=== PATIENT | male | born 1960 | race Caucasian/White ===

== ENCOUNTER 2017-10-20 21:19 | Emergency (ER) | payer MEDICAID ==
[~2017-10-20] VITALS: Ht 167.6 cm; Wt 80.7 kg
[2017-10-20 21:30] VITALS: BP_SYST 128
[2017-10-20 23:55] VITALS: BP_SYST 128
== END 2017-10-20 23:55 | disposition home or self-care (01) ==
LOC: SED 21:19
DX: S92.351A Displaced fracture of fifth metatarsal bone, right foot, initial encounter for closed fracture (principal); W19.XXXA Unspecified fall, initial encounter; Y93.89 Activity, other specified; Y92.89 Other specified places as the place of occurrence of the external cause; Y99.8 Other external cause status
CPT/HCPCS: 99284

== ENCOUNTER 2017-11-01 09:15 | Inpatient (IN) | payer MEDICAID ==
[~2017-11-01] VITALS: Ht 167.6 cm; Wt 76.9 kg
[2017-11-01 09:15] VITALS: BP_SYST 162
[2017-11-01] MEDS ORDERED: KETOROLAC TROMETHAMINE 60 MG/2 ML VIAL IM ONE (09:45)
[2017-11-01] MEDS ORDERED: MAG HYDROX/AL HYDROX/SIMETH 30 ML, BELLADONNA ALKALOIDS/PHENOBARB 10 ML, LIDOCAINE VISC... PO ONE ×3 (09:45)
[2017-11-01 09:53] LABS: BASOPHILS % (AUTO) 0.7 % (0.0-2.0); EOSINOPHILS # (AUTO) 0.2 K/uL (0.0-0.4); EOSINOPHILS % (AUTO) 2.6 % (0.0-4.0); HEMATOCRIT 44.2 % (36-54); HEMOGLOBIN 14.7 g/dL (14.0-18.0); LYMPHOCYTES # (AUTO) 1.3 K/uL (1.0-5.5); LYMPHOCYTES % (AUTO) 18.9 % (20.5-51.5); MEAN CORPUSCULAR HEMOGLOBIN 29 pg (27-31); MEAN CORPUSCULAR HGB CONC 33 % (32-36); MEAN CORPUSCULAR VOLUME 87 fL (79.0-98.0); MONOCYTES # (AUTO) 0.4 K/uL (0.0-1.0); MONOCYTES % (AUTO) 6.3 % (1.7-9.3); NEUTROPHILS # (AUTO) 4.9 K/uL (1.8-7.7); NEUTROPHILS % (AUTO) 71.5 % (40.0-70.0); PLATELET COUNT (AUTO) 262 K/uL (130-430); RED BLOOD CELL COUNT(AUTO) 5.08 MIL/uL (4.2-6.2); RED CELL DISTRIBUTION WIDTH 12.9 % (9.0-15.0); WHITE BLOOD COUNT (AUTO) 6.8 K/uL (4.8-10.8)
[2017-11-01 10:00] LABS: ANION GAP 9 (5-15); CALCIUM 8.4 mg/dL (8.4-11.0); CHLORIDE 100 mmol/L (98-107); CREATININE 1.08 mg/dL (0.55-1.30); GLUCOSE 228 mg/dL (70-99); POTASSIUM 3.8 mmol/L (3.5-5.1); SODIUM SERUM 134 mmol/L (136-145); UREA NITROGEN, BLOOD 14 mg/dL (8-21)
[2017-11-01] MEDS ORDERED: KETOROLAC TROMETHAMINE 15 MG VIAL IVP ONE (10:00)
[2017-11-01 10:01] LABS: GFR AFRICAN AMERICAN 90 mL/min (>90)
[2017-11-01 10:04] LABS: ALANINE AMINOTRANSFERASE 28 U/L (12-78); ALBUMIN 3.7 g/dL (3.4-4.8); ASPARTATE AMINOTRANSFERASE < 5 U/L (10-37); TOTAL BILIRUBIN 0.2 mg/dL (0.0-1.0)
[2017-11-01] MEDS ORDERED: ASPIRIN 81 MG TAB.CHEW PO ONE ×2 (10:45→14:45)
[2017-11-01] MEDS ORDERED: IBUP-1611 PO (11:05)
[2017-11-01] MEDS ORDERED: TYC3 PO (11:05)
[2017-11-01 12:09] VITALS: BP_SYST 161
[2017-11-01 12:46] VITALS: BP_SYST 161
[2017-11-01] MEDS ORDERED: *HEPARIN PER PHARMACY XX ONE (13:45)
[2017-11-01] MEDS: METOPROLOL TARTRATE 25 MG TABLET PO SCH ×2 (13:45→21:51)
[2017-11-01] MEDS: LISINOPRIL 5 MG TABLET PO SCH (13:45)
[2017-11-01 14:24] LABS: CHOLESTEROL 255 mg/dL (<200); HDL CHOLESTEROL 28 mg/dL (>45); LDL CHOLESTEROL 100 mg/dL (<100); TRIGLYCERIDES 631 mg/dL (30-150)
[2017-11-01] MEDS ORDERED: METOPROLOL TARTRATE 25 MG TABLET PO ONE (14:45)
[2017-11-01] MEDS ORDERED: LISINOPRIL 5 MG TABLET PO ONE (14:45)
[2017-11-01] MEDS ORDERED: ENOXAPARIN SODIUM 80 MG/0.8 ML SYRINGE SUBCUT ONE ×2 (15:00→16:15)
[2017-11-01] MEDS: ASPIRIN 81 MG TAB.CHEW PO SCH (15:11)
[2017-11-01 16:12] VITALS: BP_SYST 124
[2017-11-01 20:00] VITALS: BP_SYST 111
[2017-11-02] VITALS: BP_SYST 101
[2017-11-02 06:41] LABS: BASOPHILS # (AUTO) 0.1 K/uL (0.0-0.2); BASOPHILS % (AUTO) 1.1 % (0.0-2.0); EOSINOPHILS # (AUTO) 0.3 K/uL (0.0-0.4); EOSINOPHILS % (AUTO) 4.2 % (0.0-4.0); HEMATOCRIT 43.4 % (36-54); HEMOGLOBIN 14.5 g/dL (14.0-18.0); LYMPHOCYTES # (AUTO) 2.1 K/uL (1.0-5.5); LYMPHOCYTES % (AUTO) 31.5 % (20.5-51.5); MEAN CORPUSCULAR HEMOGLOBIN 30 pg (27-31); MEAN CORPUSCULAR HGB CONC 34 % (32-36); MEAN CORPUSCULAR VOLUME 88 fL (79.0-98.0); MONOCYTES # (AUTO) 0.3 K/uL (0.0-1.0); MONOCYTES % (AUTO) 4.9 % (1.7-9.3); NEUTROPHILS # (AUTO) 3.8 K/uL (1.8-7.7); NEUTROPHILS % (AUTO) 58.3 % (40.0-70.0); PLATELET COUNT (AUTO) 242 K/uL (130-430); RED BLOOD CELL COUNT(AUTO) 4.92 MIL/uL (4.2-6.2); RED CELL DISTRIBUTION WIDTH 13.3 % (9.0-15.0); WHITE BLOOD COUNT (AUTO) 6.6 K/uL (4.8-10.8)
[2017-11-02 07:15] LABS: CALCIUM 7.9 mg/dL (8.4-11.0); CREATININE 1.03 mg/dL (0.55-1.30); POTASSIUM 4.1 mmol/L (3.5-5.1)
[2017-11-02 07:34] LABS: ALBUMIN 2.5 g/dL (3.4-4.8); THYROID STIMULATING HORMONE 1.09 uIu/mL (0.36-3.74); TOTAL BILIRUBIN 0.4 mg/dL (0.0-1.0)
[2017-11-02 08:00] VITALS: BP_SYST 124
[2017-11-02] MEDS: ASPIRIN 81 MG TAB.CHEW PO SCH (08:56)
[2017-11-02] MEDS: METOPROLOL TARTRATE 25 MG TABLET PO SCH (08:57)
[2017-11-02] MEDS: LISINOPRIL 5 MG TABLET PO SCH (08:58)
[2017-11-02] MEDS ORDERED: ENOXAPARIN SODIUM 80 MG/0.8 ML SYRINGE SUBCUT SCH (09:00)
[2017-11-02] MEDS ORDERED: ATORVASTATIN 20 MG TABLET PO SCH (09:00)
[2017-11-02 10:46] VITALS: BP_SYST 124
[2017-11-02 11:23] VITALS: BP_SYST 94
[2017-11-02 15:42] VITALS: BP_SYST 107
== END 2017-11-02 15:30 | disposition short-term general hospital (02) | DRG 190 ==
LOC: SED 09:15 → STU 11:50
PROVIDERS: ADMIT Internal Medicine Hospice and Palliative Medicine; ATTEND Internal Medicine Hospice and Palliative Medicine
DX: I21.4 Non-ST elevation (NSTEMI) myocardial infarction (principal); E11.65 Type 2 diabetes mellitus with hyperglycemia; E78.5 Hyperlipidemia, unspecified; E78.1 Pure hyperglyceridemia; I10 Essential (primary) hypertension; F17.210 Nicotine dependence, cigarettes, uncomplicated; Z79.899 Other long term (current) drug therapy; Z90.49 Acquired absence of other specified parts of digestive tract
CPT/HCPCS: 36415; 71045; 80053; 80061; 82550-TC; 83036; 83880; 84443-TC; 84484; 85025; 93005; 93306; 96374; 99285; J1650; J1885; J2001

== ENCOUNTER 2020-03-14 07:30 | Inpatient (IN) | payer MEDICAID, SELFPAY ==
[~2020-03-14] VITALS: Ht 167.6 cm; Wt 67.8 kg
[~2020-03-14 07:30] MED LIST: IBUP-2604 PO; TYC3 PO
[2020-03-14 07:43] VITALS: BP_SYST 131
--- NOTE | 2020-03-14 07:48 | NUR ---
Patient to ER bed 7 to gown for evaluation. Side rails up. Report given to Paige NIELSON.
--- NOTE | 2020-03-14 07:53 | NUR ---
ekg done and given to
--- NOTE | 2020-03-14 08:00 | NUR ---
ER Dr. Chacon at bedside examining patient.
--- NOTE | 2020-03-14 08:00 | NUR ---
# 20 gauge angiocath placed to LFA. Use of asceptic technique. Opsite placed over site. Blood return noted. Blood for lab drawn from site. Flushed with 10 cc of normal saline. No evidence of infiltration noted. Patient tolerated well.
--- NOTE | 2020-03-14 08:05 | NUR ---
Respiratory at bedside for ABG, results given to
--- NOTE | 2020-03-14 08:14 | NUR ---
Radiology at bedside for CXR
[2020-03-14 08:17] LABS: BASOPHILS % (AUTO) 0.3 % (0.0-2.0); HEMATOCRIT 41.9 % (36-54); HEMOGLOBIN 14.3 g/dL (14.0-18.0); LYMPHOCYTES # (AUTO) 0.6 K/uL (1.0-5.5); LYMPHOCYTES % (AUTO) 5.3 % (20.5-51.5); MEAN CORPUSCULAR HEMOGLOBIN 29 pg (27-31); MEAN CORPUSCULAR HGB CONC 34 % (32-36); MEAN CORPUSCULAR VOLUME 86 fL (79.0-98.0); MONOCYTES # (AUTO) 0.2 K/uL (0.0-1.0); MONOCYTES % (AUTO) 2.1 % (1.7-9.3); NEUTROPHILS % (AUTO) 92.3 % (40.0-70.0); PLATELET COUNT (AUTO) 176 K/uL (130-430); RED BLOOD CELL COUNT(AUTO) 4.88 MIL/uL (4.2-6.2); RED CELL DISTRIBUTION WIDTH 13.5 % (9.0-15.0); WHITE BLOOD COUNT (AUTO) 10.8 K/uL (4.8-10.8)
--- NOTE | 2020-03-14 08:20 | NUR ---
pt moved from ER 7 to ER 8.
--- NOTE | 2020-03-14 08:28 | NUR ---
Notified ED Admitting in regards to pt transfer/admission.
[2020-03-14 08:29] LABS: CALCIUM 8.1 mg/dL (8.4-11.0); CREATININE 0.92 mg/dL (0.55-1.30)
[2020-03-14 08:30] LABS: INR 1.1 (0.80-1.20)
[2020-03-14 08:35] LABS: ALBUMIN 2.9 g/dL (3.4-4.8); C-REACTIVE PROTEIN QUANT 17.7 mg/dL (0-0.5); TOTAL BILIRUBIN 0.7 mg/dL (0.0-1.0)
[2020-03-14 08:40] LABS: POTASSIUM 3.6 mmol/L (3.5-5.1)
--- NOTE | 2020-03-14 08:58 | NUR ---
Med rec and belongings list completed.
[2020-03-14] MEDS ORDERED: ASPIRIN 325 MG TABLET PO ONE (09:00)
[2020-03-14] MEDS ORDERED: AZIT500T10 PO (09:01)
--- NOTE | 2020-03-14 09:11 | NUR ---
RIMMA Care Director Nursing Service, requested fax of facesheet and clinicals FAX: [phone] AUTH #: [id number] ATTN: Komal Merino
[2020-03-14] MEDS ORDERED: GLUCOSE (DEXTROSE) ORAL GEL -Adults PO PRN (10:30)
[2020-03-14] MEDS ORDERED: D5W 1,000 ML IV PRN (10:30)
[2020-03-14] MEDS ORDERED: DEXTROSE 50% JECT 50 ML DISP.SYRIN IVP PRN (10:30)
--- NOTE | 2020-03-14 10:30 | NUR ---
Admit orders received from Dr. Arellano, pt to go to room 126B.
--- NOTE | 2020-03-14 10:34 | NUR ---
Patient will be admitted to care of Dr. Arellano. Admitted to Tele unit. Will go to room 126B. Belongings list completed. Complete and up to date summary report printed. SBAR report to be given at bedside with opportunity for questions. IV site intact and patent.
--- NOTE | 2020-03-14 10:47 | NUR ---
ADMISSION NOTE Received patient from ER via maria erlucy, received report from MARCIN NIELSON. Patient admitted with diagnosis of HYPOXIA, COVID PNA, UNCONTROLLED DM. Patient oriented to hospital routine, call light, toileting and safety-patient verbalized understanding.
--- NOTE | 2020-03-14 10:54 | NUR ---
CONSULTATION PAGED/CALLED Reason for Consultation: [] HYPOXIA, COVIDPNA Person Who was Notified: [] DR RAHMAN PAGED DIRECTLY (WILL SEE PT TOMORROW) Consulting Physician: [] DR RAHMAN, CARBON BRUSHES ASSEMBLER FOR DR BARRETT Software Development Project Manager Specialty: [] PULMO Ordering Physician: [] DR VELAZQUEZ
--- NOTE | 2020-03-14 10:57 | NUR ---
CONSULTATION PAGED/CALLED Reason for Consultation: [] HYPOXIA, COVIDPNA Person Who was Notified: [] ISIDRO Consulting Physician: [] DR FRANK Senior Media Director Specialty: [] ID Ordering Physician: [] DR VELAZQUEZ
--- NOTE | 2020-03-14 11:00 | NUR ---
ADMISSION NOTES PT IN BED . VITALS STABLE . RES EVEN AND UNLABORED. O2 3 NC SATURATION 98%-98%. POC DISCUSSED WITH PT .PT VERBALIZED UNDERSTANDING. SAFETY AND FALL PRECAUTIONS IN PLACE. CALL LIGHT WITHIN REACH.PT VERBALIZED UNDERSTANDING OF USING CALL LIGHT. BED LOCKED AND IN LOW POSITION.WILL CONTINUE TO MONITOR
[2020-03-14 11:03] LABS: BILIRUBIN,URINE NEGATIVE (NEGATIVE); BLOOD, URINE NEGATIVE (NEGATIVE); CLARITY/URINE CLEAR (CLEAR); COLOR,URINE YELLOW (YELLOW); GLUCOSE,URINE 3+ (NEGATIVE); KETONES,URINE 2+ (NEGATIVE); LEUKOCYTE ESTERASE ,URINE NEGATIVE (NEGATIVE); NITRITE, URINE NEGATIVE (NEGATIVE); PH,URINE 5.5 (5.0-8.0); PROTEIN URINE TRACE (NEGATIVE)
[2020-03-14 11:05] VITALS: BP_SYST 130
[2020-03-14] MEDS: INSULIN LISPRO SLIDING SCALE 100 UNITS/ML VIAL (humaLOG) SUBCUT PRN ×3 (11:16→21:43)
[2020-03-14 11:21] LABS: BACTERIA,URINE FEW /HPF (None Seen); RBC,URINE 0-3 /HPF (0-3); WBC,URINE 0-3 /HPF (0-3)
--- NOTE | 2020-03-14 12:15 | NUR ---
MD VISIT DR WANG HERE.UPDATED WITH PT CONDITION.
[2020-03-14] MEDS ORDERED: FAMOTIDINE PF 20 MG/2 ML VIAL IVP ONE (12:30)
[2020-03-14] MEDS ORDERED: IVERMECTIN 3 MG TABLET PO ONE (12:30)
[2020-03-14] MEDS ORDERED: CHOLECALCIFEROL (VITAMIN D3) 2,000 UNIT TABLET PO ONE (12:30)
[2020-03-14] MEDS ORDERED: ASCORBIC ACID 500 MG TABLET PO ONE (12:30)
[2020-03-14] MEDS ORDERED: ENOXAPARIN SODIUM 40 MG/0.4 ML SYRINGE SUBCUT ONE (12:30)
[2020-03-14] MEDS ORDERED: DEXAMETHASONE SOD PHOSPHATE 10 MG/ML VIAL IVP SCH (13:00)
[2020-03-14] MEDS ORDERED: INSULIN GLARGINE 100 UNITS/ML 10 ML VIAL SUBCUT ONE ×2 (13:45→23:00)
[2020-03-14] MEDS: cefTRIAXone 1 GM in D5W 50 ML IV SCH (14:00)
[2020-03-14] MEDS: DEXAMETHASONE SOD PHOSPHATE 10 MG/ML VIAL IVP SCH (14:00)
[2020-03-14] MEDS: AZITHROMYCIN 500 MG in NS 250 ML IV SCH (14:33)
--- NOTE | 2020-03-14 14:34 | NUR ---
ROUNDS PT STABLE NOT IN ACUTE DISTRESS. VITALS STABLE. DENIES ANY SOB AT THIS TIME. 02 SATURATION 98% ON 3L/NC. NEEDS ATTENDED. C/O OF SORE THROAT . WILL NOTIFY MD. SAFETY / CONTACT/DROPLET ISOLATION MAINTAINED. WILL CONTINUE TO MONITOR
[2020-03-14 14:57] VITALS: BP_SYST 130
--- NOTE | 2020-03-14 17:34 | NUR ---
Paged Dr. VELAZQUEZ for elevated troponin
--- NOTE | 2020-03-14 17:44 | NUR ---
CONSULTATION PAGED/CALLED Reason for Consultation: [] ELEVATED TROP Person Who was Notified: [] ELINA Consulting Physician: [] DR GERARD Basting Cleaner Specialty: [] CARDIOLOGY Ordering Physician: [] DR VELAZQUEZ
--- NOTE | 2020-03-14 18:00 | NUR ---
BLOOD SUGAR BS 303 . INSULIN HUMALOG SQ GIVEN PER SS. SEE E MAR. PT RESTING COMFORTABLY DENIES ANY CHEST PAIN OR SOB.DINNER SERVED. NEEDS ATTENDED.
--- NOTE | 2020-03-14 19:10 | NUR ---
HIGH ALERT NOTE: Called Dr. Arellano back at [phone] identified within the medical roster to verify physician authenticity ,VERIFIED WITH MORPHINE 2 MG IVP X1 NOW
[2020-03-14] MEDS ORDERED: MORPHINE 2 MG/ML INJ. SYRINGE IVP ONE (19:15)
--- NOTE | 2020-03-14 19:15 | NUR ---
at 1854 pt called c/o of chest pain 10/10 and sob o2 saturation 87%to 88% on 3 l. o2 increased to 6lnc o2 saturation still 88%. rapid response called. pt place on 10 l simple mask o2 saturation increased to 93%. ABG /EKG done. morphine 2 mg given as ordered. RT at bed side.. Addendum: 03/14/20 at 2008 by Twila Kendall RN at 1854 pt called c/o of chest pain 10/10 and sob o2 saturation 87%to 88% on 3 l. o2 increased to 6lnc o2 saturation still 88%. bp 127/74.hr 77 .res 24,tem 98.6.rapid response called. pt place on 10 l simple mask o2 saturation increased to 93%. ABG /EKG done. morphine 2 mg given as ordered. RT at bed side.
--- NOTE | 2020-03-14 19:16 | NUR ---
MD CALLED BACK: TALKED WITH DR SALAS WHO IS IS CHUCKING AND SAWING MACHINE OPERATOR FOR DR GERARD , INFORMED HIM ABOUT PTS ELEVATED TROPONIN AND CHEST PAIN AND LOW O2 SAT . NOTIFIED MD THAT PT RECEIVED MORPHINE 2 MG IVP X1 PER PRIMARY DR ORDER . PT IS ON O2 VIA MASK NOW AND SAT 92% ;ALSO NOTIFIED MD THAT DR VELAZQUEZ ORDERED TO TRANSFER PT TO ICU .
--- NOTE | 2020-03-14 19:25 | NUR ---
Opening Note Received report from AM nurse using SBAR approach.
[2020-03-14] MEDS ORDERED: MORPHINE 2 MG/ML INJ. SYRINGE ONE (19:28)
--- NOTE | 2020-03-14 19:38 | NUR ---
Left a voicemail message to Dany Sauceda phone no. [phone] to call the hospital.
--- NOTE | 2020-03-14 19:48 | NUR ---
transfer to icu. pt transfer to icu acls protocol . pt in on 10L simple mask saturation 94% chest pain better. charge nurse marjan at bed side. report given to NISREEN lopez charge nurse liliana.
--- NOTE | 2020-03-14 19:50 | NUR ---
Transfer Patient is transferred from [facility] to ICU bed 7. Patient is on 10L simple mask. Patient's saturation is 95%. Patient states he has no pain. Patient is on the monitor SR. No signs or symptoms of distress. Bed locked in lowest position, safety protocols in place. Call light within reach.
[2020-03-14 20:00] VITALS: BP_SYST 110
[2020-03-14 21:00] VITALS: BP_SYST 104
[2020-03-14] MEDS: FAMOTIDINE PF 20 MG/2 ML VIAL IVP SCH (21:18)
[2020-03-14 22:00] VITALS: BP_SYST 107
[2020-03-14] MEDS ORDERED: POTASSIUM CHLORIDE 10 MEQ in NACL 0.9% 1,000 ML IV SCH (23:00)
[2020-03-15] VITALS (26 sets, daily range): BP systolic 95–130
--- NOTE | 2020-03-15 | NUR ---
PAGED FOR ORDER CLARIFICATION DR. VELAZQUEZ DIALED: [phone] SPOKE TO: MAIL TRUCK DRIVER
--- NOTE | 2020-03-15 00:05 | NUR ---
DR. VELAZQUEZ SPOKE WITH DR. VELAZQUEZ FOR ORDER CLARIFICATION. NEW ORDERS RECEIVED. WILL FOLLOW THROUGH WITH ORDERS PER JUL.
[2020-03-15] MEDS ORDERED: KCL 20 mEq in NS 1000 mL 1,000 ML IV ONE (00:50)
[2020-03-15] MEDS: KCL 20 mEq in NS 1000 mL 1,000 ML IV SCH ×2 (01:20→14:23)
[2020-03-15] MEDS: INSULIN LISPRO SLIDING SCALE 100 UNITS/ML VIAL (humaLOG) SUBCUT PRN ×3 (06:38→17:19)
--- NOTE | 2020-03-15 07:00 | NUR ---
Nursing Rounds Patient is saturating 95%. Patient states no distress or pain. No signs or symptoms of distress.
[2020-03-15 07:15] LABS: BASOPHILS % (AUTO) 0.1 % (0.0-2.0); HEMATOCRIT 40.6 % (36-54); HEMOGLOBIN 13.7 g/dL (14.0-18.0); LYMPHOCYTES # (AUTO) 0.7 K/uL (1.0-5.5); LYMPHOCYTES % (AUTO) 5.5 % (20.5-51.5); MEAN CORPUSCULAR HEMOGLOBIN 29 pg (27-31); MEAN CORPUSCULAR HGB CONC 34 % (32-36); MEAN CORPUSCULAR VOLUME 86 fL (79.0-98.0); MONOCYTES # (AUTO) 0.3 K/uL (0.0-1.0); MONOCYTES % (AUTO) 2.5 % (1.7-9.3); NEUTROPHILS # (AUTO) 11.2 K/uL (1.8-7.7); NEUTROPHILS % (AUTO) 91.9 % (40.0-70.0); PLATELET COUNT (AUTO) 193 K/uL (130-430); RED BLOOD CELL COUNT(AUTO) 4.74 MIL/uL (4.2-6.2); RED CELL DISTRIBUTION WIDTH 13.3 % (9.0-15.0); WHITE BLOOD COUNT (AUTO) 12.2 K/uL (4.8-10.8)
--- NOTE | 2020-03-15 07:25 | NUR ---
Closing Note Endorsed report to AM nurse using SBAR approach.
[2020-03-15 07:44] LABS: ALBUMIN 2.6 g/dL (3.4-4.8); BILIRUBIN,DIRECT 0.1 mg/dL (0.0-0.3); THYROID STIMULATING HORMONE 0.26 uIu/mL (0.34-4.82); TOTAL BILIRUBIN 0.4 mg/dL (0.0-1.0)
[2020-03-15 08:17] LABS: C-REACTIVE PROTEIN QUANT 19.6 mg/dL (0-0.5)
--- NOTE | 2020-03-15 09:00 | NUR ---
SPOKE TO DR WANG AND HE WILL START REMDEZEVIR AND PLASMA TODAY. DR GERARD IN TO SEE PATIENT, INFORMED THAT PATIENT VOIDED 250CC AT 8AM DARK YELLOW URINE. PATIENT ABLE TO EAT 50% OF BREAKFAST. ENCOURAGED PATIENT TO PRONE FOR IMPROVED OXYGENTATION AND HE IS ABLE TO FOLLOW COMMANDS AND DO DIRECTED SATS 99% AT THIS TIME. ivf INFUSING WELL AND WILL MONITOR CLOSELY.
[2020-03-15] MEDS: FAMOTIDINE PF 20 MG/2 ML VIAL IVP SCH ×2 (09:26→20:06)
[2020-03-15] MEDS: CHOLECALCIFEROL (VITAMIN D3) 2,000 UNIT TABLET PO SCH (09:29)
[2020-03-15] MEDS: ASCORBIC ACID 500 MG TABLET PO SCH (09:29)
[2020-03-15] MEDS: ENOXAPARIN SODIUM 40 MG/0.4 ML SYRINGE SUBCUT SCH (09:30)
[2020-03-15 10:25] LABS: CALCIUM 8.2 mg/dL (8.4-11.0); CREATININE 0.71 mg/dL (0.55-1.30); FREE T4 (FREE THYROXINE) 1.6 ng/dl (0.8-1.5); POTASSIUM 4.5 mmol/L (3.5-5.1)
--- NOTE | 2020-03-15 10:35 | NUR ---
Nutrition Update Fran Scale 17 noted. Pt admitted for hypoxia, COVID pneumonia, and uncontrolled DM. Diet: cardiac, CCHO standard carb-60 gm BMI: 23.9 kg/m2 RD to follow per nutrition care standards.
[2020-03-15 10:56] LABS: ALBUMIN 2.4 g/dL (3.4-4.8); CALCIUM 7.8 mg/dL (8.4-11.0); CREATININE 0.72 mg/dL (0.55-1.30); POTASSIUM 4.2 mmol/L (3.5-5.1); TOTAL BILIRUBIN 0.3 mg/dL (0.0-1.0)
[2020-03-15] MEDS: cefTRIAXone 1 GM in D5W 50 ML IV SCH (12:41)
[2020-03-15] MEDS: DEXAMETHASONE SOD PHOSPHATE 10 MG/ML VIAL IVP SCH (12:41)
[2020-03-15] MEDS: AZITHROMYCIN 500 MG in NS 250 ML IV SCH (14:11)
--- NOTE | 2020-03-15 16:00 | NUR ---
SPOKE TO PATIENT ABOUT CONSENT FOR PLASMA AND HE HAS VERBALLY CONSENTED FOR ME. SPOKE TO VERITO AND SHE ALSO CONSENTED FOR PLASMA TRANSFUSION. WILL SIGN OFF ON PAPER CONSENT.
[2020-03-15] MEDS: INSULIN GLARGINE 100 UNITS/ML 10 ML VIAL SUBCUT SCH (17:20)
--- NOTE | 2020-03-15 19:25 | NUR ---
Opening Note Received report from AM nurse using SBAR approach.
--- NOTE | 2020-03-15 20:30 | NUR ---
MRSA swab Swabbed patient for MRSA.
--- NOTE | 2020-03-15 20:31 | NUR ---
PAGEOscar VELAZQUEZ [phone] SPOKE WITH ORLANDO
--- NOTE | 2020-03-15 20:45 | NUR ---
MD eckert Called Dr. Arellano and told her patient's blood sugar as requested. No new orders received.
--- NOTE | 2020-03-15 21:20 | NUR ---
Convalescent Plasma Consent signed per patient agreeing to administration of convalescent plasma. Blood has been type and crossmatched. Blood sent from blood bank. Information on unit of blood checked against patient wristband at bedside by two nurses. All information matches. Patient or responsible democrat informed of potential complications associated with blood transfusion. Informed of possible transfusion reaction symptoms. Aware of need to notify nurse at once of itching, shortness of breath, flushing, feeling of impending doom, or other symptoms not previously present. Vital signs taken within 5 minutes prior to initiation of transfusion. RN will remain with patient for first 15 minutes of transfusion at which time vital signs will be re-assessed.
--- NOTE | 2020-03-15 23:30 | NUR ---
Convalescent Plasma finished infusing. Patient tolerated well, no signs or symptoms of distress or adverse reactions. Vital signs stable. Will continue to monitor.
[2020-03-16] VITALS (24 sets, daily range): BP systolic 97–143
--- NOTE | 2020-03-16 01:20 | NUR ---
RT changed patient to simple mask 10L. patient tolerating well, saturations 94/95%. Will continue to monitor.
--- NOTE | 2020-03-16 04:00 | NUR ---
Patient's saturations are 88/89% on the simple mask. Changed patient to non rebreather mask 15L and saturations are now 95%. Will continue to monitor.
[2020-03-16] MEDS: KCL 20 mEq in NS 1000 mL 1,000 ML IV SCH ×2 (05:36→17:26)
[2020-03-16 06:43] LABS: BASOPHILS % (AUTO) 0.1 % (0.0-2.0); HEMATOCRIT 37.4 % (36-54); HEMOGLOBIN 12.9 g/dL (14.0-18.0); LYMPHOCYTES # (AUTO) 0.5 K/uL (1.0-5.5); LYMPHOCYTES % (AUTO) 4.3 % (20.5-51.5); MEAN CORPUSCULAR HEMOGLOBIN 29 pg (27-31); MEAN CORPUSCULAR HGB CONC 34 % (32-36); MEAN CORPUSCULAR VOLUME 85 fL (79.0-98.0); MONOCYTES # (AUTO) 0.3 K/uL (0.0-1.0); MONOCYTES % (AUTO) 3.3 % (1.7-9.3); NEUTROPHILS # (AUTO) 9.9 K/uL (1.8-7.7); NEUTROPHILS % (AUTO) 92.3 % (40.0-70.0); PLATELET COUNT (AUTO) 225 K/uL (130-430); RED BLOOD CELL COUNT(AUTO) 4.39 MIL/uL (4.2-6.2); RED CELL DISTRIBUTION WIDTH 13.4 % (9.0-15.0); WHITE BLOOD COUNT (AUTO) 10.7 K/uL (4.8-10.8)
[2020-03-16] MEDS: INSULIN LISPRO SLIDING SCALE 100 UNITS/ML VIAL (humaLOG) SUBCUT PRN ×4 (06:43→20:57)
[2020-03-16 07:08] LABS: HEPATITIS A AB, IgM Negative (Negative); HEPATITIS B CORE AB, IgM Negative (Negative); HEPATITIS B SURFACE AG Negative (Negative)
[2020-03-16 07:26] LABS: ALBUMIN 2.5 g/dL (3.4-4.8); BILIRUBIN,DIRECT 0.1 mg/dL (0.0-0.3); CALCIUM 8.1 mg/dL (8.4-11.0); CREATININE 0.67 mg/dL (0.55-1.30); THYROID STIMULATING HORMONE 0.27 uIu/mL (0.36-3.74); TOTAL BILIRUBIN 0.3 mg/dL (0.0-1.0)
--- NOTE | 2020-03-16 07:27 | NUR ---
Opening Note Received plan of care via sbar from endorsing RN.
[2020-03-16 08:13] LABS: C-REACTIVE PROTEIN QUANT 11.5 mg/dL (0-0.5)
[2020-03-16] MEDS: FAMOTIDINE PF 20 MG/2 ML VIAL IVP SCH ×2 (08:48→19:54)
[2020-03-16] MEDS: ASCORBIC ACID 500 MG TABLET PO SCH (08:48)
[2020-03-16] MEDS: ASPIRIN 81 MG TAB.CHEW PO SCH (08:48)
[2020-03-16] MEDS: CHOLECALCIFEROL (VITAMIN D3) 2,000 UNIT TABLET PO SCH (08:48)
[2020-03-16] MEDS: INSULIN GLARGINE 100 UNITS/ML 10 ML VIAL SUBCUT SCH (08:50)
[2020-03-16] MEDS: ENOXAPARIN SODIUM 40 MG/0.4 ML SYRINGE SUBCUT SCH (08:51)
--- NOTE | 2020-03-16 11:15 | NUR ---
Dr. Membreno at bedside. Provided patient update. No new orders.
--- NOTE | 2020-03-16 11:15 | NUR ---
Dr. Membreno at bedside. No new orders.
[2020-03-16] MEDS: DEXAMETHASONE SOD PHOSPHATE 10 MG/ML VIAL IVP SCH (13:23)
[2020-03-16] MEDS: cefTRIAXone 1 GM in D5W 50 ML IV SCH (13:23)
[2020-03-16] MEDS: AZITHROMYCIN 500 MG in NS 250 ML IV SCH (13:24)
--- NOTE | 2020-03-16 13:37 | NUR ---
Dietitian Recommendations * Recommend cardiac, CCHO standard carb-60 gm, 100 gm protein diet * Encourage increase PO intakes LP, RD Please refer to Nutrition Assessment for details. Addendum: 03/16/20 at [address] Amended: Links added.
--- NOTE | 2020-03-16 19:13 | NUR ---
Spoke to Dr. Arellano and received order for Lantus 10 units once sub q. Call back made to confirm order.
--- NOTE | 2020-03-16 19:25 | NUR ---
Opening Note Received report from AM nurse using SBAR approach.
[2020-03-16] MEDS ORDERED: INSULIN GLARGINE 100 UNITS/ML 10 ML VIAL SUBCUT ONE (21:00)
[2020-03-17] VITALS (25 sets, daily range): BP systolic 105–143
--- NOTE | 2020-03-17 01:00 | NUR ---
Patient is tolerating well on oximizer. States no distress or pain.
[2020-03-17 06:23] LABS: ALBUMIN 2.3 g/dL (3.4-4.8); BILIRUBIN,DIRECT 0.1 mg/dL (0.0-0.3); C-REACTIVE PROTEIN QUANT 5.1 mg/dL (0-0.5); TOTAL BILIRUBIN 0.4 mg/dL (0.0-1.0)
[2020-03-17] MEDS: KCL 20 mEq in NS 1000 mL 1,000 ML IV SCH ×2 (06:40→20:40)
[2020-03-17] MEDS: INSULIN LISPRO SLIDING SCALE 100 UNITS/ML VIAL (humaLOG) SUBCUT PRN ×4 (06:41→20:54)
[2020-03-17 07:14] LABS: CALCIUM 8.3 mg/dL (8.4-11.0); CREATININE 0.65 mg/dL (0.55-1.30); POTASSIUM 3.9 mmol/L (3.5-5.1)
--- NOTE | 2020-03-17 07:14 | NUR ---
Closing Note Endorsed report to AM nurse using SBAR approach.
--- NOTE | 2020-03-17 07:30 | NUR ---
Opening Note Received plan of care via sbar from endorsing RN.
[2020-03-17] MEDS: ASCORBIC ACID 500 MG TABLET PO SCH (08:18)
[2020-03-17] MEDS: FAMOTIDINE PF 20 MG/2 ML VIAL IVP SCH ×2 (08:18→20:40)
[2020-03-17] MEDS: ASPIRIN 81 MG TAB.CHEW PO SCH (08:18)
[2020-03-17] MEDS: CHOLECALCIFEROL (VITAMIN D3) 2,000 UNIT TABLET PO SCH (08:18)
[2020-03-17] MEDS: ENOXAPARIN SODIUM 40 MG/0.4 ML SYRINGE SUBCUT SCH (08:22)
[2020-03-17] MEDS: INSULIN GLARGINE 100 UNITS/ML 10 ML VIAL SUBCUT SCH (08:22)
[2020-03-17] MEDS ORDERED: INSULIN GLARGINE 100 UNITS/ML 10 ML VIAL SUBCUT ONE (10:00)
[2020-03-17] MEDS: cefTRIAXone 1 GM in D5W 50 ML IV SCH (12:29)
[2020-03-17] MEDS: DEXAMETHASONE SOD PHOSPHATE 10 MG/ML VIAL IVP SCH (12:30)
--- NOTE | 2020-03-17 12:30 | NUR ---
Dr. Olvera at bedside. Provided patient update. No new orders.
[2020-03-17] MEDS: AZITHROMYCIN 500 MG in NS 250 ML IV SCH (13:11)
--- NOTE | 2020-03-17 14:30 | NUR ---
Dr. Adriana durham. Provided patient update. No new orders.
--- NOTE | 2020-03-17 19:15 | NUR ---
change of shift.pt.presents isolation status;droplet;covid19+.pt.presents o2 therapy via oximizer; o2 administered@the rate 6l/min o2-sat%=92%.pt.presents peripheral iv access location rt.forearm.iv fluids infusing.remdesivir administration in progress.pt.utilizing the urinal. general status stable.respiratory status stable.slight labored.pt.capable to reposition self. call light/telephone w/in access of the pt.
--- NOTE | 2020-03-17 19:16 | NUR ---
Closing Note Provided plan of care via sbar to receiving RN.
--- NOTE | 2020-03-17 20:00 | NUR ---
pt.assessed.pt.presents quiescent affect;calm,resting,viewing tv programming.i noted pt's primary language;kinyarwanda to attend to the pt.kinyarwanda for the remainder of the shift.o2-sat=93%.o2 therapy administered@the rate 6l/mi via oximizer.v/s assessed values w/in normal limits.iv access intact; patent iv fluids infusing.remdesivir administration in progress.no c/o pain,nausea.i have apprised the pt.that snacks/beverages are available w/in the shift.pt.requested cup of tea.i have provided the tea.i have attended to the urinal.measured/cleaned placed w/in access of the pt.pt.capable to reposition self.call light/telephone w/in access of the pt.
--- NOTE | 2020-03-17 20:30 | NUR ---
i have assessed the blood glucose value;289mg/l.i have apprised the pt.of the blood glucose value.to require insulin coverage per the sliding scale protocol.
--- NOTE | 2020-03-17 21:00 | NUR ---
2100pmedicaions administered.i have administered insulin;humalog;6-units per sliding scale protocol/parameters.i have provided the pt. w tissue/trash bags.
--- NOTE | 2020-03-17 22:00 | NUR ---
pt.assessed.pt.presents quiescent affect;calm,somnolent.v/s assessed values w/in normal limits. o2-sat%=91%. i have attended to urinal.measured/cleaned placed w/in access of the pt.iv fluids infusing.remdesivir administration completed.pt.capable to reposition self.to continue to monitor the o2-sat%.call light/ telephone w/in access of the pt.
[2020-03-18] VITALS (26 sets, daily range): BP systolic 103–150
--- NOTE | 2020-03-18 | NUR ---
pt.assessed.v/s assessed values w/in normal limits.o2-sat%=91%pt.presents quiescent affect;calm,somnolent.no c/o pain,nausea.iv fluids infusing.oximizer in place. i have attended to the urinal:measured/cleaned placed w/in access of the pt. no requests posited@this hour.pt.capable to reposition self.call light/telephone w/in access of the pt.
--- NOTE | 2020-03-18 02:00 | NUR ---
pt.assessed.v/s assessed values w/in normal limits.o2-sat%=93%.pt.presents quiescent affect;calm,somnolent.no c/o pain,nausea.no requests posited@this hour.i have attended to the urinal.iv access intact;patent iv fluids infusing.general status stable.respiratory status stable.call light/telephone w/in access of the pt.
--- NOTE | 2020-03-18 04:00 | NUR ---
pt.assessed.v/s assessed values w/in normal limits.o2-sat%=92%.pt.requested assistance to the bsc.i have provided a bsc. pt.capable to leave the bed and return w supervision.no additional requests@this hour.no c/o pain,nausea.iv access intact patent iv fluids infusing.general status stable.respiratory status slight labored/compromised.call light/telephone w/in access of the pt.
[2020-03-18] MEDS: KCL 20 mEq in NS 1000 mL 1,000 ML IV SCH ×2 (05:28→19:05)
[2020-03-18 05:30] LABS: BASOPHILS % (AUTO) 0.1 % (0.0-2.0); HEMATOCRIT 40.5 % (36-54); HEMOGLOBIN 13.8 g/dL (14.0-18.0); LYMPHOCYTES # (AUTO) 0.4 K/uL (1.0-5.5); LYMPHOCYTES % (AUTO) 4.7 % (20.5-51.5); MEAN CORPUSCULAR HEMOGLOBIN 29 pg (27-31); MEAN CORPUSCULAR HGB CONC 34 % (32-36); MEAN CORPUSCULAR VOLUME 85 fL (79.0-98.0); MONOCYTES # (AUTO) 0.4 K/uL (0.0-1.0); MONOCYTES % (AUTO) 4.7 % (1.7-9.3); NEUTROPHILS # (AUTO) 8.4 K/uL (1.8-7.7); NEUTROPHILS % (AUTO) 90.5 % (40.0-70.0); PLATELET COUNT (AUTO) 284 K/uL (130-430); RED BLOOD CELL COUNT(AUTO) 4.76 MIL/uL (4.2-6.2); RED CELL DISTRIBUTION WIDTH 13.4 % (9.0-15.0); WHITE BLOOD COUNT (AUTO) 9.2 K/uL (4.8-10.8)
[2020-03-18 05:55] LABS: ALBUMIN 2.4 g/dL (3.4-4.8); CALCIUM 7.7 mg/dL (8.4-11.0); CREATININE 0.72 mg/dL (0.55-1.30); POTASSIUM 3.4 mmol/L (3.5-5.1); TOTAL BILIRUBIN 0.4 mg/dL (0.0-1.0)
--- NOTE | 2020-03-18 06:00 | NUR ---
pt.assessed.no c/o pain,nausea.i have assessed the blood glucose;value;211mg./dl. i have apprised the pt.of the blood glucose value.pt.had maintained o2-sat%=88%. i have conferred w r/t;tatiana and was recommended to increase the o2 rate to 10l/min. no requests posited@this hour.pt.capable to reposition self.call light/telephone placed w/in access of the pt.
[2020-03-18] MEDS: INSULIN LISPRO SLIDING SCALE 100 UNITS/ML VIAL (humaLOG) SUBCUT PRN ×3 (06:18→20:16)
[2020-03-18 06:23] LABS: C-REACTIVE PROTEIN QUANT 2.4 mg/dL (0-0.5)
[2020-03-18 06:44] LABS: ERYTHROCYTE SEDIMENTATION RATE 26 MM/HR (0-15)
--- NOTE | 2020-03-18 07:30 | NUR ---
Opening Note Received bedside report from endorsing RN for continuation of care. Received patient awake and resting in bed, patient denies any pain or SOB at this time. No signs or symptoms of acute distress noted. Encouraged patient to deep breathe and self prone. Bed locked in lowest position and call light within reach. Fall and safety precautions in place.
[2020-03-18] MEDS: ASCORBIC ACID 500 MG TABLET PO SCH (08:02)
[2020-03-18] MEDS: CHOLECALCIFEROL (VITAMIN D3) 2,000 UNIT TABLET PO SCH (08:02)
[2020-03-18] MEDS: ASPIRIN 81 MG TAB.CHEW PO SCH (08:03)
[2020-03-18] MEDS: FAMOTIDINE PF 20 MG/2 ML VIAL IVP SCH ×2 (08:03→19:49)
[2020-03-18] MEDS: ENOXAPARIN SODIUM 40 MG/0.4 ML SYRINGE SUBCUT SCH (08:03)
[2020-03-18] MEDS: INSULIN GLARGINE 100 UNITS/ML 10 ML VIAL SUBCUT SCH (08:05)
--- NOTE | 2020-03-18 08:15 | NUR ---
Dr. Velarde at bedside examining patient. No new orders.
--- NOTE | 2020-03-18 08:30 | NUR ---
Dr. Wright at bedside examining patient. No new orders.
[2020-03-18] MEDS ORDERED: POTASSIUM CHLORIDE 10 MEQ TAB.PRT.SR PO ONE (08:45)
--- NOTE | 2020-03-18 10:35 | NUR ---
Family Update Spoke with patient's son Nadir on the phone regarding patient status and plan of care. All questions answered and education provided.
--- NOTE | 2020-03-18 12:52 | NUR ---
Dietitian Note Pt was referred by cage clerk d/t diet order for increased protein of 100gm per day. RD reviewed EMR, labs, MD notes and care trends. Pt's BG level is slowly trending down. Pt continues to receive remdesivir and decadron. PO intake records show pt eats 50% of meals x [address] s/w pt's primary RN Patrice who reported that pt ate 50% of breakfast and did not consume 100% of meat/protein. RD rec to add ONS Glucerna for additional protein per meal. Continue to encourage pt to increase PO intake. A/w approval for RD rec and diet order. RD to follow per nutrition care standards. SAIRA HERNANDEZ
--- NOTE | 2020-03-18 13:22 | NUR ---
Dr. Membreno in to see patient. New orders received.
[2020-03-18] MEDS: cefTRIAXone 1 GM in D5W 50 ML IV SCH (13:28)
[2020-03-18] MEDS: AZITHROMYCIN 500 MG in NS 250 ML IV SCH (13:28)
[2020-03-18] MEDS: DEXAMETHASONE SOD PHOSPHATE 10 MG/ML VIAL IVP SCH (13:28)
--- NOTE | 2020-03-18 14:09 | NUR ---
Family [employer] iPad provided for patient to [employer] family.
--- NOTE | 2020-03-18 16:58 | NUR ---
Dr. Arellano in to see patient. No new orders. Per Dr. Arellano, patient may be transferred to telemetry if ICU bed is needed, but prefers for patient to stay overnight in ICU since he desaturates.
--- NOTE | 2020-03-18 18:19 | NUR ---
Dinner Assisted patient to sit up to eat dinner. All needs met.
--- NOTE | 2020-03-18 19:06 | NUR ---
Closing Note Endorsed bedside report to oncoming RN using SBAR approach for continuation of care.
--- NOTE | 2020-03-18 19:15 | NUR ---
Opening Note Received report from AM nurse using SBAR approach.
--- NOTE | 2020-03-18 22:00 | NUR ---
BM Assisted patient to bedside commode and patient tolerated well. Assisted patient back to the bed and he had no signs or symptoms of distress.
[2020-03-19] VITALS (24 sets, daily range): BP systolic 82–130
[2020-03-19 06:23] LABS: ALBUMIN 2.4 g/dL (3.4-4.8); CALCIUM 7.9 mg/dL (8.4-11.0); CREATININE 0.64 mg/dL (0.55-1.30); POTASSIUM 3.9 mmol/L (3.5-5.1); TOTAL BILIRUBIN 0.3 mg/dL (0.0-1.0)
[2020-03-19 07:25] LABS: C-REACTIVE PROTEIN QUANT 3.2 mg/dL (0-0.5)
--- NOTE | 2020-03-19 08:00 | NUR ---
AM ASSESSMENT. 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
[2020-03-19] MEDS: ASCORBIC ACID 500 MG TABLET PO SCH (08:02)
[2020-03-19] MEDS: ASPIRIN 81 MG TAB.CHEW PO SCH (08:02)
[2020-03-19] MEDS: CHOLECALCIFEROL (VITAMIN D3) 2,000 UNIT TABLET PO SCH (08:03)
[2020-03-19] MEDS: ENOXAPARIN SODIUM 40 MG/0.4 ML SYRINGE SUBCUT SCH (08:08)
[2020-03-19] MEDS: INSULIN GLARGINE 100 UNITS/ML 10 ML VIAL SUBCUT SCH (08:09)
[2020-03-19] MEDS: FAMOTIDINE PF 20 MG/2 ML VIAL IVP SCH ×2 (08:11→20:47)
--- NOTE | 2020-03-19 08:30 | NUR ---
ACTIVITY. ASSISTED PT TO SIT UP IN A CHAIR ORDERED BY DR FERNANDEZ, ENCOURAGED TO TAKE DEEP BREATHS OR USE THE INCENTIVE SPIROMETER TO PROMOTE ADEQUATE OXYGENATION, PT ABLE TO DEMONSTRATE, REACHED 800 ML.
--- NOTE | 2020-03-19 08:57 | NUR ---
PAGED DR FRENCH FRANK SPOKE TO NOELLE
--- NOTE | 2020-03-19 09:20 | NUR ---
IRicco. DR FRANK RETURNED THE CALL. NOTIFIED HIM OF DRUG IV REMDESIVIR FOR 1800 WAS MISSED. HE STATED TO GET PHARMACIST MAKE ADJUSTMENT.
--- NOTE | 2020-03-19 09:45 | NUR ---
ACTIVITY. LED PT BACK IN BED, HE GOT ON THE BED, SIDE LYING, INSTRUCTED TO LIE ON HIS STOMACH, PT DID.
[2020-03-19] MEDS: KCL 20 mEq in NS 1000 mL 1,000 ML IV SCH (11:35)
[2020-03-19] MEDS: INSULIN LISPRO SLIDING SCALE 100 UNITS/ML VIAL (humaLOG) SUBCUT PRN ×3 (11:52→21:10)
[2020-03-19] MEDS: cefTRIAXone 1 GM in D5W 50 ML IV SCH (12:27)
[2020-03-19] MEDS: DEXAMETHASONE SOD PHOSPHATE 10 MG/ML VIAL IVP SCH (12:28)
--- NOTE | 2020-03-19 12:45 | NUR ---
FAMILY. PT'S SPOUSE AND THEIR SON KASSY CALLED AND UPDATED THEM ON PT'S STATUS. THEY ASKED TO HAVE A VIDEO CHAT, IPAD PLACED IN FRONT OF THE PATIENT, AND CONNECTED THEM.
--- NOTE | 2020-03-19 17:30 | NUR ---
ACTIVITY. ENCOURAGED PT TO USE SPIROMETER, ABLE TO GET TO BELOW 1000 ML LEVEL.
--- NOTE | 2020-03-19 19:35 | NUR ---
Opening note Received report and assumed care. Patient resting comfortably in bed. Isolation for Covid19 in place. Oxymizer 9 L/min in place and tolerating well. SOB with moderate exertion reporting "takes me time to recover after activity". Repositions by self and requires minimal assist. will continue to monitor as per unit protocol.
--- NOTE | 2020-03-19 21:21 | NUR ---
PAGED FOR ORDERS DIALED: [phone] SPOKE TO: SHANICE
--- NOTE | 2020-03-19 21:24 | NUR ---
Received orders from Dr Arellano to give 10 units of Lantus for Blood glucose 302 along with sliding scale coverage 8 units Humalog.
--- NOTE | 2020-03-19 21:25 | NUR ---
HIGH ALERT NOTE: Called back at 2124 identified within the medical roster to verify physician authenticity.
[2020-03-19] MEDS ORDERED: INSULIN GLARGINE 100 UNITS/ML 10 ML VIAL SUBCUT ONE (21:30)
[2020-03-20] VITALS (19 sets, daily range): BP systolic 84–127
[2020-03-20 06:02] LABS: ALBUMIN 2.2 g/dL (3.4-4.8); CALCIUM 7.9 mg/dL (8.4-11.0); CREATININE 0.57 mg/dL (0.55-1.30); POTASSIUM 3.8 mmol/L (3.5-5.1); TOTAL BILIRUBIN 0.3 mg/dL (0.0-1.0)
--- NOTE | 2020-03-20 07:35 | NUR ---
Opening Note Received bedside report from endorsing RN for continuation of care. Received patient awake and resting in bed, patient denies any pain or SOB at this time. No signs or symptoms of acute distress noted. Encouraged patient to deep breathe and self prone and use incentive spirometer. Education and demonstration provided. Bed locked in lowest position and call light within reach. Fall and safety precautions in place.
--- NOTE | 2020-03-20 08:23 | NUR ---
Dr. Velarde at bedside examining patient. New orders received.
--- NOTE | 2020-03-20 08:54 | NUR ---
paged Paged Dr. Arellano and informed her of the blood sugar of 367 as requested. New orders received. Addendum: 03/21/20 at 0601 by Blanche Choi RN wrong time
[2020-03-20] MEDS: FAMOTIDINE PF 20 MG/2 ML VIAL IVP SCH ×2 (09:13→21:00)
[2020-03-20] MEDS: ENOXAPARIN SODIUM 40 MG/0.4 ML SYRINGE SUBCUT SCH (09:14)
[2020-03-20] MEDS: INSULIN GLARGINE 100 UNITS/ML 10 ML VIAL SUBCUT SCH (09:15)
[2020-03-20] MEDS: ASPIRIN 81 MG TAB.CHEW PO SCH (09:16)
[2020-03-20] MEDS: CHOLECALCIFEROL (VITAMIN D3) 2,000 UNIT TABLET PO SCH (09:16)
[2020-03-20] MEDS: ASCORBIC ACID 500 MG TABLET PO SCH (09:16)
--- NOTE | 2020-03-20 09:41 | NUR ---
Dr. Wright at bedside examining patient. No new orders. Addendum: 03/20/20 at 1005 by Susan Tran RN New orders received.
[2020-03-20] MEDS: INSULIN LISPRO SLIDING SCALE 100 UNITS/ML VIAL (humaLOG) SUBCUT PRN ×2 (10:47→16:16)
[2020-03-20] MEDS: cefTRIAXone 1 GM in D5W 50 ML IV SCH (12:55)
[2020-03-20] MEDS: DEXAMETHASONE SOD PHOSPHATE 10 MG/ML VIAL IVP SCH (12:56)
[2020-03-20] MEDS: KCL 20 mEq in NS 1000 mL 1,000 ML IV SCH ×2 (12:56)
--- NOTE | 2020-03-20 14:45 | NUR ---
RN Rounds Assisted patient to use commode. Pericare done.
--- NOTE | 2020-03-20 15:59 | NUR ---
Physical Therapy at Bedside Physical therapy at bedside for patient consultation.
--- NOTE | 2020-03-20 16:56 | NUR ---
P.T. NOTES P.T. EVAL COMPLETED; REFER TO EVAL FOR DETAILS; ENDORSED TO NURSING; O2 SAT ROOM AIR=80s, OXYMIZER 9L=95% AT REST, 86% W/ EXERTION, 12L=90% W/ EXERTION.
--- NOTE | 2020-03-20 17:05 | NUR ---
Family [employer] iPad provided for patient to [employer] family.
--- NOTE | 2020-03-20 19:17 | NUR ---
Closing Note Endorsed bedside report to oncoming RN using SBAR approach for continuation of care.
--- NOTE | 2020-03-20 19:20 | NUR ---
Opening Note Received report from AM nurse using SBAR approach.
--- NOTE | 2020-03-20 20:54 | NUR ---
paged Paged Dr. Arellano and informed her of the blood sugar of 367 as requested. New orders received.
--- NOTE | 2020-03-20 20:55 | NUR ---
HIGH ALERT NOTE: Called Dr. Arellano back at 2054 identified within the medical roster to verify physician authenticity.
[2020-03-21] VITALS (17 sets, daily range): BP systolic 85–116
[2020-03-21] MEDS ORDERED: INSULIN GLARGINE 100 UNITS/ML 10 ML VIAL SUBCUT ONE ×2 (05:45→23:00)
[2020-03-21] MEDS: INSULIN LISPRO SLIDING SCALE 100 UNITS/ML VIAL (humaLOG) SUBCUT PRN ×4 (05:58→21:23)
[2020-03-21] MEDS: KCL 20 mEq in NS 1000 mL 1,000 ML IV SCH (05:58)
[2020-03-21 06:43] LABS: BASOPHILS % (AUTO) 0.1 % (0.0-2.0); EOSINOPHILS % (AUTO) 0.1 % (0.0-4.0); HEMATOCRIT 41.8 % (36-54); HEMOGLOBIN 14.1 g/dL (14.0-18.0); LYMPHOCYTES # (AUTO) 0.6 K/uL (1.0-5.5); LYMPHOCYTES % (AUTO) 5.4 % (20.5-51.5); MEAN CORPUSCULAR HEMOGLOBIN 29 pg (27-31); MEAN CORPUSCULAR HGB CONC 34 % (32-36); MEAN CORPUSCULAR VOLUME 85 fL (79.0-98.0); MONOCYTES # (AUTO) 0.3 K/uL (0.0-1.0); MONOCYTES % (AUTO) 2.8 % (1.7-9.3); NEUTROPHILS % (AUTO) 91.6 % (40.0-70.0); PLATELET COUNT (AUTO) 297 K/uL (130-430); RED CELL DISTRIBUTION WIDTH 13.6 % (9.0-15.0); WHITE BLOOD COUNT (AUTO) 10.9 K/uL (4.8-10.8)
[2020-03-21 07:05] LABS: CREATININE 0.72 mg/dL (0.55-1.30)
--- NOTE | 2020-03-21 07:45 | NUR ---
RN NOTES AWAKE AND ALERT, NOT IN ACUTE DISTRESS. O2 @ 6 L/MIN VIA OXYMIZER. SINUS RHYTHM ON THE MONITOR. DENIES ANY PAIN/DISCOMFORT. AM CARE DONE.
--- NOTE | 2020-03-21 08:00 | NUR ---
MD VISIT: DR. REBECCA FERNANDEZ HERE TO SEE PATIENT.
[2020-03-21 08:07] LABS: C-REACTIVE PROTEIN QUANT 4.9 mg/dL (0-0.5)
--- NOTE | 2020-03-21 08:15 | NUR ---
RN NOTES PATIENT ASSISTED TO THE BEDSIDE CHAIR, BREAKFAST OFFERED, ATE GOOD
[2020-03-21] MEDS: ASCORBIC ACID 500 MG TABLET PO SCH (09:02)
[2020-03-21] MEDS: FAMOTIDINE PF 20 MG/2 ML VIAL IVP SCH ×2 (09:02→21:23)
[2020-03-21] MEDS: ASPIRIN 81 MG TAB.CHEW PO SCH (09:03)
[2020-03-21] MEDS: CHOLECALCIFEROL (VITAMIN D3) 2,000 UNIT TABLET PO SCH (09:03)
[2020-03-21] MEDS: ENOXAPARIN SODIUM 40 MG/0.4 ML SYRINGE SUBCUT SCH (09:04)
--- NOTE | 2020-03-21 09:05 | NUR ---
BS - 119 MG/DL DUE INSULIN GIVEN.
--- NOTE | 2020-03-21 09:15 | NUR ---
RN NOTES ASSISTED BACK TO BED, HI FLOW O2 BY RESP THERAPIST. MADE COMFORTABLE.
--- NOTE | 2020-03-21 09:20 | NUR ---
RT NOTES Placed pt on HFNC 25L 65%, saturation 92%
[2020-03-21] MEDS: INSULIN GLARGINE 100 UNITS/ML 10 ML VIAL SUBCUT SCH (09:26)
--- NOTE | 2020-03-21 11:00 | NUR ---
RN NOTES RESTING COMFORTABLY AT THIS TIME.
--- NOTE | 2020-03-21 11:45 | NUR ---
BS - 154 MG/DL Due insulin coverage given SQ.
[2020-03-21] MEDS: DEXAMETHASONE SOD PHOSPHATE 10 MG/ML VIAL IVP SCH (13:16)
--- NOTE | 2020-03-21 15:00 | NUR ---
RN NOTES Comfortable at this time. Vitals stable.
--- NOTE | 2020-03-21 17:15 | NUR ---
BS - 195 MG/DL DUE INSULIN COVERAGE GIVEN SQ.
--- NOTE | 2020-03-21 17:36 | NUR ---
Nutrition F/U RD reviewed pt's current EMR record including diet Hx, physician notes, nursing notes, pertinent labs/meds/procedures, care trends, and care activity. Admission Dx: Hypoxia, COVID pneumonia, uncontrolled DM PMH: HTN, DM per physician notes SARS-CoV-2 Ag (Rapid) Positive 03/14 Current Diet Order/Nutrition Support: Cardiac, CCHO standard carb-60 gm, 100 gm protein x5 days Subjective Info: RD bedside visit was deferred d/t isolation precautions and PPE conservation efforts. RD spoke w/ pt's primary RN via phone call this afternoon. RN stated that pt continues w/ good appetite, and no c/o N/V/C/D. Current diet remains adequate/appropriate. Wt increased by 2#, may be d/t linens/bedding -- 149#/68 kg (03/18) compared to 147#/67 kg (03/16). Pertinent Medications: lantus, SSI, zinc sulfate, VIT D3, VIT C, decadron, pepcid Pertinent Labs: BG 105 H, POC BG 208 H, TG 167 H (03/16), Chol 207 H (03/16), LDL 140 H (03/16), CRP 4.9 H (03/21), WBC 10.9 H Skin Integrity Comment: Fran scale: 17; skin intact per RN report Current % PO 63% average x14 meals Estimated Energy Expenditure (kcals/day) 5023-8177 kcal/day (15-20 kcal/kg CBW for COVID-19 Dz requiring ICU care) Estimated Protein Required (g/day) 80-134 gm/day (1.2-2 gm/kg CBW for COVID-19 Dz requiring ICU care) Estimated Fluid Required (l/day) 2-2.3 L/day (30-35 ml/kg CBW for maintenance) Problem/Etiology/Signs/Symptoms Increased protein needs related to metabolic demands as evidenced by estimated protein requirements for COVID-19 Dz requiring ICU care per [facility]. Expected Outcomes/Goals - Monitor appetite and PO intakes w/ goal of pt meeting at least 80% of estimated nutritional needs, labs trending WNL, normal GI function, and skin integrity/wt maintenance Dietitian Recommendations * Recommend continuing cardiac, CCHO standard carb-60 gm, 100 gm protein diet * Encourage increase PO intakes Follow Up Mod Risk: F/U in 3-5 days
--- NOTE | 2020-03-21 17:41 | NUR ---
Dietitian Recommendations * Recommend continuing cardiac, CCHO standard carb-60 gm, 100 gm protein diet * Encourage increase PO intakes LP, RD Please refer to Nutrition F/U for details.
--- NOTE | 2020-03-21 18:00 | NUR ---
PM CARE DONE. ASSISTED WITH DINNER.
--- NOTE | 2020-03-21 19:25 | NUR ---
PM SHIFT ASSESSMENT Pt is alert and oriented. Pt is on oxymizer, SPO2 above 93%. SR on monitor. Skin warm and dry. IVF infusing. Safety precautions in place, call light within reach. Will continue to monitor.
--- NOTE | 2020-03-21 22:45 | NUR ---
Spoke to Dr. Eileen MD informed about patients last blood sugar. Orders received. Will call back for one time high alert medication.
--- NOTE | 2020-03-21 22:47 | NUR ---
HIGH ALERT NOTE: Called Dr. Arellano back at [phone] identified within the medical roster to verify physician authenticity.
[2020-03-22] VITALS (24 sets, daily range): BP systolic 82–143
[2020-03-22] MEDS: KCL 20 mEq in NS 1000 mL 1,000 ML IV SCH ×2 (01:25→21:01)
[2020-03-22 06:02] LABS: BASOPHILS % (AUTO) 0.1 % (0.0-2.0); HEMATOCRIT 40.4 % (36-54); HEMOGLOBIN 13.8 g/dL (14.0-18.0); LYMPHOCYTES # (AUTO) 0.6 K/uL (1.0-5.5); LYMPHOCYTES % (AUTO) 5.6 % (20.5-51.5); MEAN CORPUSCULAR HEMOGLOBIN 29 pg (27-31); MEAN CORPUSCULAR HGB CONC 34 % (32-36); MEAN CORPUSCULAR VOLUME 85 fL (79.0-98.0); MONOCYTES # (AUTO) 0.3 K/uL (0.0-1.0); MONOCYTES % (AUTO) 3.1 % (1.7-9.3); NEUTROPHILS # (AUTO) 9.3 K/uL (1.8-7.7); NEUTROPHILS % (AUTO) 91.2 % (40.0-70.0); PLATELET COUNT (AUTO) 321 K/uL (130-430); RED BLOOD CELL COUNT(AUTO) 4.76 MIL/uL (4.2-6.2); RED CELL DISTRIBUTION WIDTH 13.6 % (9.0-15.0); WHITE BLOOD COUNT (AUTO) 10.2 K/uL (4.8-10.8)
[2020-03-22 06:17] LABS: ALBUMIN 2.2 g/dL (3.4-4.8); BILIRUBIN,DIRECT 0.2 mg/dL (0.0-0.3); CALCIUM 7.8 mg/dL (8.4-11.0); CREATININE 0.65 mg/dL (0.55-1.30); POTASSIUM 3.9 mmol/L (3.5-5.1); TOTAL BILIRUBIN 0.4 mg/dL (0.0-1.0)
[2020-03-22] MEDS: CHOLECALCIFEROL (VITAMIN D3) 2,000 UNIT TABLET PO SCH (08:32)
[2020-03-22] MEDS: ASCORBIC ACID 500 MG TABLET PO SCH (08:32)
[2020-03-22] MEDS: ENOXAPARIN SODIUM 40 MG/0.4 ML SYRINGE SUBCUT SCH ×2 (08:32→21:04)
[2020-03-22] MEDS: FAMOTIDINE PF 20 MG/2 ML VIAL IVP SCH ×2 (08:32→21:04)
[2020-03-22] MEDS: ASPIRIN 81 MG TAB.CHEW PO SCH (08:32)
[2020-03-22] MEDS: INSULIN GLARGINE 100 UNITS/ML 10 ML VIAL SUBCUT SCH (08:37)
[2020-03-22] MEDS ORDERED: COMMUNICATION ORDER XX ONE (09:00)
[2020-03-22] MEDS: THEOPHYLLINE ANHYDROUS 200 MG TAB.SR.12H PO SCH ×2 (11:30→21:04)
[2020-03-22] MEDS: DEXAMETHASONE SOD PHOSPHATE 10 MG/ML VIAL IVP SCH (13:15)
[2020-03-22] MEDS: INSULIN LISPRO SLIDING SCALE 100 UNITS/ML VIAL (humaLOG) SUBCUT PRN ×3 (13:20→23:54)
--- NOTE | 2020-03-22 15:35 | NUR ---
DR FERNANDEZ IN TO SEE PATIENT AND INFORMED OF THE SATURATIONS WITH PRONING. SHE WANTS CONTINUED PRONING, OOB TO CHAIR AND USE OF THE INCENTIVE SPIROMETER. PATIENT REMAINS COOPERATIVE, ABLE, AND WILLING TO PRONE. SPOKE TO ABOUT PLAN OF CARE AND ONGOING ENCOURAGEMENT TO PRONE CONSISTENTLY. WILL CONTINUE TO MONITOR.
[2020-03-22] MEDS ORDERED: FUROSEMIDE 20 MG/2 ML VIAL IVP ONE (18:45)
--- NOTE | 2020-03-22 19:40 | NUR ---
Opening note Received report and assumed care. patient sitting in chair on high flow tolerating settings well. Peripheral IV patent and infusing IVF. Able to use urinal. patient reports wanting to remain sitting for some more time. Advised patient to self prone and to call for assistance when ready to be back in bed. will continue to monitor.
--- NOTE | 2020-03-22 21:35 | NUR ---
Placed call to Dr Arellano to report last BS [id number]
--- NOTE | 2020-03-22 21:45 | NUR ---
HIGH ALERT NOTE: Called back at 2145 identified within the medical roster to verify physician authenticity.
[2020-03-22] MEDS ORDERED: INSULIN GLARGINE 100 UNITS/ML 10 ML VIAL SUBCUT ONE (22:00)
[2020-03-22] MEDS ORDERED: FUROSEMIDE 20 MG/2 ML VIAL ONE (22:24)
--- NOTE | 2020-03-22 22:45 | NUR ---
Self proning Patient reported being ready to be back in bed from chair. Positioned self in prone with minimal assistance. tolerated well.
[2020-03-23] VITALS (24 sets, daily range): BP systolic 74–123
[2020-03-23 05:32] LABS: CALCIUM 8.2 mg/dL (8.4-11.0); CREATININE 0.58 mg/dL (0.55-1.30); POTASSIUM 3.6 mmol/L (3.5-5.1)
[2020-03-23 05:39] LABS: C-REACTIVE PROTEIN QUANT 1.9 mg/dL (0-0.5)
--- NOTE | 2020-03-23 06:00 | NUR ---
Morning care provided. patient resting in bed on supine position. BS checked 106.
--- NOTE | 2020-03-23 07:29 | NUR ---
Opening Note Received plan of care via sbar from endorsing RN.
--- NOTE | 2020-03-23 08:16 | NUR ---
Dr. Velarde at bedside. Provided patient update. Discussed dietary to include ensure BID and okay with food from outside. Continue on IS for respiratory exercises.
[2020-03-23 09:17] LABS: BASOPHILS # (AUTO) 0.1 K/uL (0.0-0.2); BASOPHILS % (AUTO) 0.9 % (0.0-2.0); EOSINOPHILS % (AUTO) 0.1 % (0.0-4.0); HEMATOCRIT 44.1 % (36-54); HEMOGLOBIN 14.9 g/dL (14.0-18.0); LYMPHOCYTES % (AUTO) 6.9 % (20.5-51.5); MEAN CORPUSCULAR HEMOGLOBIN 29 pg (27-31); MEAN CORPUSCULAR HGB CONC 34 % (32-36); MEAN CORPUSCULAR VOLUME 86 fL (79.0-98.0); MONOCYTES # (AUTO) 0.5 K/uL (0.0-1.0); MONOCYTES % (AUTO) 3.9 % (1.7-9.3); NEUTROPHILS # (AUTO) 12.2 K/uL (1.8-7.7); NEUTROPHILS % (AUTO) 88.2 % (40.0-70.0); PLATELET COUNT (AUTO) 360 K/uL (130-430); RED BLOOD CELL COUNT(AUTO) 5.16 MIL/uL (4.2-6.2); RED CELL DISTRIBUTION WIDTH 13.7 % (9.0-15.0); WHITE BLOOD COUNT (AUTO) 13.8 K/uL (4.8-10.8)
[2020-03-23] MEDS: ASPIRIN 81 MG TAB.CHEW PO SCH (09:18)
[2020-03-23] MEDS: ASCORBIC ACID 500 MG TABLET PO SCH (09:18)
[2020-03-23] MEDS: FAMOTIDINE PF 20 MG/2 ML VIAL IVP SCH ×2 (09:18→22:16)
[2020-03-23] MEDS: THEOPHYLLINE ANHYDROUS 200 MG TAB.SR.12H PO SCH ×2 (09:23→22:16)
[2020-03-23] MEDS: ENOXAPARIN SODIUM 40 MG/0.4 ML SYRINGE SUBCUT SCH ×2 (09:25→22:17)
[2020-03-23] MEDS: INSULIN GLARGINE 100 UNITS/ML 10 ML VIAL SUBCUT SCH (09:25)
[2020-03-23] MEDS: CHOLECALCIFEROL (VITAMIN D3) 2,000 UNIT TABLET PO SCH (09:51)
[2020-03-23] MEDS: INSULIN LISPRO SLIDING SCALE 100 UNITS/ML VIAL (humaLOG) SUBCUT PRN ×3 (11:11→22:51)
--- NOTE | 2020-03-23 11:20 | NUR ---
TITRATED FIO2 DOWN TO 60% PER FERNANDEZ, KEEP SAT > 89-90%. SPO2 91%, HR 84.
--- NOTE | 2020-03-23 12:15 | NUR ---
Dr. Arellano at bedside. Provided patient update. Received order for ABG and to contact MD with evening fingerstick result.
[2020-03-23] MEDS: DEXAMETHASONE SOD PHOSPHATE 10 MG/ML VIAL IVP SCH (13:17)
[2020-03-23] MEDS: KCL 20 mEq in NS 1000 mL 1,000 ML IV SCH (18:35)
--- NOTE | 2020-03-23 19:04 | NUR ---
Closing Note Provided plan of care via sbar to receiving RN.
--- NOTE | 2020-03-23 19:40 | NUR ---
opening note Received patient after report. Resting in bed able to reposition self and able to prone self. High flow in place tolerating well. Reports feeling less shortness of breath with activity. Will continue to monitor.
--- NOTE | 2020-03-23 20:45 | NUR ---
Assessment completed. Repositioned for comfort. No signs of distress noted or reported.
--- NOTE | 2020-03-23 23:00 | NUR ---
Prone position by self. Tolerating well on high flow.
[2020-03-24] VITALS (24 sets, daily range): BP systolic 87–124
[2020-03-24 05:41] LABS: BASOPHILS % (AUTO) 0.3 % (0.0-2.0); HEMATOCRIT 40.6 % (36-54); HEMOGLOBIN 13.8 g/dL (14.0-18.0); LYMPHOCYTES # (AUTO) 0.7 K/uL (1.0-5.5); LYMPHOCYTES % (AUTO) 6.4 % (20.5-51.5); MEAN CORPUSCULAR HEMOGLOBIN 29 pg (27-31); MEAN CORPUSCULAR HGB CONC 34 % (32-36); MEAN CORPUSCULAR VOLUME 85 fL (79.0-98.0); MONOCYTES # (AUTO) 0.5 K/uL (0.0-1.0); MONOCYTES % (AUTO) 4.5 % (1.7-9.3); NEUTROPHILS # (AUTO) 9.8 K/uL (1.8-7.7); NEUTROPHILS % (AUTO) 88.8 % (40.0-70.0); PLATELET COUNT (AUTO) 313 K/uL (130-430); RED BLOOD CELL COUNT(AUTO) 4.77 MIL/uL (4.2-6.2); RED CELL DISTRIBUTION WIDTH 13.3 % (9.0-15.0)
[2020-03-24 05:49] LABS: CALCIUM 7.7 mg/dL (8.4-11.0); CREATININE 0.66 mg/dL (0.55-1.30); POTASSIUM 3.8 mmol/L (3.5-5.1)
--- NOTE | 2020-03-24 09:30 | NUR ---
Dr payne at bedside. Says she will put new orders in if needed.
[2020-03-24] MEDS: ASPIRIN 81 MG TAB.CHEW PO SCH (09:39)
[2020-03-24] MEDS: THEOPHYLLINE ANHYDROUS 200 MG TAB.SR.12H PO SCH ×2 (09:39→20:56)
[2020-03-24] MEDS: FAMOTIDINE PF 20 MG/2 ML VIAL IVP SCH ×2 (09:39→20:56)
[2020-03-24] MEDS: ASCORBIC ACID 500 MG TABLET PO SCH (09:40)
[2020-03-24] MEDS: CHOLECALCIFEROL (VITAMIN D3) 2,000 UNIT TABLET PO SCH (09:40)
[2020-03-24] MEDS: INSULIN GLARGINE 100 UNITS/ML 10 ML VIAL SUBCUT SCH (10:00)
[2020-03-24] MEDS: ENOXAPARIN SODIUM 40 MG/0.4 ML SYRINGE SUBCUT SCH ×2 (10:01→20:57)
--- NOTE | 2020-03-24 10:02 | NUR ---
0845 pt placed on 7l oxymizer. sat 94% [id number] 56hr. rn aware. Addendum: 03/24/20 at 1004 by Elyse Valerio RT Amended: Links added.
--- NOTE | 2020-03-24 13:00 | NUR ---
Family brought in soup for patient to eat for lunch. Facetime with family shortly thereafter.
[2020-03-24] MEDS: DEXAMETHASONE SOD PHOSPHATE 10 MG/ML VIAL IVP SCH (13:32)
[2020-03-24] MEDS: KCL 20 mEq in NS 1000 mL 1,000 ML IV SCH (16:45)
[2020-03-24] MEDS: INSULIN LISPRO SLIDING SCALE 100 UNITS/ML VIAL (humaLOG) SUBCUT PRN ×2 (18:06→21:54)
--- NOTE | 2020-03-24 19:35 | NUR ---
Opening note Received report and assumed care. Patient resting in bed, no signs of distress noted or reported. Cooperative with nursing. Oxymizer in place and tolerating well as being off high flow. Reports able to tolerate activity better now. Will continue to monitor as per unit protocol.
--- NOTE | 2020-03-24 21:48 | NUR ---
CALLED DR. VELAZQUEZ CALLED INFORMED OF BS RESULTS. NO NEW ORDERS.
[2020-03-25] VITALS (19 sets, daily range): BP systolic 91–139
--- NOTE | 2020-03-25 00:29 | NUR ---
Assessment completed, repositioned with assist on prone position. tolerated well.
[2020-03-25 07:46] LABS: CREATININE 0.54 mg/dL (0.55-1.30); POTASSIUM 3.7 mmol/L (3.5-5.1)
[2020-03-25 07:47] LABS: C-REACTIVE PROTEIN QUANT 0.5 mg/dL (0-0.5)
--- NOTE | 2020-03-25 08:00 | NUR ---
Opening Note Pt AAOx4, able to verbalize needs. Pt states no pain or distress at this time on 7L oximizer. No cough or fever noted. IV site intact, patent, IVF infusing, no infiltration noted. Voids in urinal. Uses incentive spirometer and prones himself. Provided breakfast tray. No other complaints at this time.
[2020-03-25] MEDS: ASPIRIN 81 MG TAB.CHEW PO SCH (08:07)
[2020-03-25] MEDS: FAMOTIDINE PF 20 MG/2 ML VIAL IVP SCH ×2 (08:08→20:06)
[2020-03-25] MEDS: CHOLECALCIFEROL (VITAMIN D3) 2,000 UNIT TABLET PO SCH (08:08)
[2020-03-25] MEDS: ASCORBIC ACID 500 MG TABLET PO SCH (08:08)
[2020-03-25 08:09] LABS: BASOPHILS % (AUTO) 0.1 % (0.0-2.0); HEMATOCRIT 45.7 % (36-54); HEMOGLOBIN 15.3 g/dL (14.0-18.0); LYMPHOCYTES # (AUTO) 0.7 K/uL (1.0-5.5); MEAN CORPUSCULAR HEMOGLOBIN 29 pg (27-31); MEAN CORPUSCULAR HGB CONC 33 % (32-36); MEAN CORPUSCULAR VOLUME 86 fL (79.0-98.0); MONOCYTES # (AUTO) 0.5 K/uL (0.0-1.0); MONOCYTES % (AUTO) 4.7 % (1.7-9.3); NEUTROPHILS # (AUTO) 9.2 K/uL (1.8-7.7); NEUTROPHILS % (AUTO) 88.2 % (40.0-70.0); PLATELET COUNT (AUTO) 314 K/uL (130-430); RED BLOOD CELL COUNT(AUTO) 5.34 MIL/uL (4.2-6.2); RED CELL DISTRIBUTION WIDTH 13.6 % (9.0-15.0); WHITE BLOOD COUNT (AUTO) 10.4 K/uL (4.8-10.8)
[2020-03-25] MEDS: ENOXAPARIN SODIUM 40 MG/0.4 ML SYRINGE SUBCUT SCH ×2 (08:09→20:07)
[2020-03-25] MEDS: THEOPHYLLINE ANHYDROUS 200 MG TAB.SR.12H PO SCH ×2 (08:11→20:07)
[2020-03-25] MEDS: INSULIN NPH 100 UNITS/ML 10 ML VIAL SUBCUT SCH ×2 (08:11→18:00)
[2020-03-25] MEDS: KCL 20 mEq in NS 1000 mL 1,000 ML IV SCH (12:05)
[2020-03-25] MEDS: DEXAMETHASONE SOD PHOSPHATE 10 MG/ML VIAL IVP SCH (13:47)
--- NOTE | 2020-03-25 14:17 | NUR ---
Patient sitting up in chair. No acute distress noted. Tolerating well.
--- NOTE | 2020-03-25 16:30 | NUR ---
Telemetry Status Monitoring pt on telemetry status per MD order
--- NOTE | 2020-03-25 16:50 | NUR ---
Pt ambulate to commode, steady gate. Had BM and void.
[2020-03-25] MEDS: INSULIN LISPRO SLIDING SCALE 100 UNITS/ML VIAL (humaLOG) SUBCUT PRN ×2 (17:59→20:35)
--- NOTE | 2020-03-25 19:25 | NUR ---
Opening Note Received report from AM nurse using SBAR approach.
--- NOTE | 2020-03-25 19:35 | NUR ---
Closing Pt sitting in chair, finishing dinner. Pt states no pain or distress at this time. No other complaints noted. Endorsed plan of care to RN.
--- NOTE | 2020-03-25 21:15 | NUR ---
Transfer Transferred patient to telemetry to room 127 B. Patient was on the monitor during transfer. Patient was on 8L O2 on the oximizer during transfer. No signs or symptoms of distress. Patient tolerated the transfer well.
--- NOTE | 2020-03-25 21:16 | NUR ---
Closing Note Endorsed report to tele nurse Geetha using SBAR approach.
--- NOTE | 2020-03-25 21:17 | NUR ---
RECEIVED SBAR REPORT FROM ICU NURSE.
--- NOTE | 2020-03-25 21:20 | NUR ---
INITIAL NOTE PATIENT IS STABLE AND LAYING IN BED. NO S/S OF RESPIRATORY DISTRESS NOTED. CALL LIGHT IN REACH. PATIENT SUCCESSFULLY DEMONSTRATES USAGE OF CALL LIGHT. BED IS LOCKED, ALARMED, AND AT THE LOWEST POSITION. FALL, SAFETY, ASPIRATION, COVID AND RESPIRATORY PRECAUTIONS WILL BE IN PLACE THROUGHOUT THE SHIFT. PLAN OF CARE IS DISCUSSED WITH PATIENT.
--- NOTE | 2020-03-26 | NUR ---
PATIENT IS STABLE AND SLEEPING IN BED. NO S/S OF RESPIRATORY DISTRESS NOTED. CALL LIGHT IN REACH.
[2020-03-26 00:03] VITALS: BP_SYST 90
[2020-03-26] MEDS: INSULIN NPH 100 UNITS/ML 10 ML VIAL SUBCUT SCH ×2 (06:16→13:45)
--- NOTE | 2020-03-26 06:20 | NUR ---
CLOSING NOTE PATIENT IS STABLE AND SLEEPING IN BED. NO S/S OF RESPIRATORY DISTRESS NOTED. CALL LIGHT IN REACH. BED IS LOCKED, ALARMED, AND AT THE LOWEST POSITION. FALL, SAFETY, ASPIRATION, AND RESPIRATORY PRECAUTIONS WAS PLACED THROUGHOUT THE SHIFT.
[2020-03-26 07:19] LABS: BASOPHILS % (AUTO) 0.2 % (0.0-2.0); EOSINOPHILS % (AUTO) 0.1 % (0.0-4.0); HEMATOCRIT 42.2 % (36-54); HEMOGLOBIN 14.3 g/dL (14.0-18.0); LYMPHOCYTES # (AUTO) 0.8 K/uL (1.0-5.5); LYMPHOCYTES % (AUTO) 8.8 % (20.5-51.5); MEAN CORPUSCULAR HEMOGLOBIN 29 pg (27-31); MEAN CORPUSCULAR HGB CONC 34 % (32-36); MEAN CORPUSCULAR VOLUME 86 fL (79.0-98.0); MONOCYTES # (AUTO) 0.5 K/uL (0.0-1.0); MONOCYTES % (AUTO) 5.2 % (1.7-9.3); NEUTROPHILS # (AUTO) 7.8 K/uL (1.8-7.7); NEUTROPHILS % (AUTO) 85.7 % (40.0-70.0); PLATELET COUNT (AUTO) 274 K/uL (130-430); RED BLOOD CELL COUNT(AUTO) 4.94 MIL/uL (4.2-6.2); RED CELL DISTRIBUTION WIDTH 13.7 % (9.0-15.0); WHITE BLOOD COUNT (AUTO) 9.1 K/uL (4.8-10.8)
[2020-03-26 07:28] LABS: C-REACTIVE PROTEIN QUANT 0.4 mg/dL (0-0.5); CALCIUM 8.6 mg/dL (8.4-11.0); CREATININE 0.57 mg/dL (0.55-1.30); POTASSIUM 3.7 mmol/L (3.5-5.1)
--- NOTE | 2020-03-26 07:56 | NUR ---
Nutrition Update Fran scale 17 noted. Pt admitted for Hypoxia, COVID PNA, Uncontrolled Diabetes Diet:[facility] Diet BMI: 24.1 kg/m2 RD to follow per nutrition care standards.
[2020-03-26 08:00] VITALS: BP_SYST 91
--- NOTE | 2020-03-26 08:00 | NUR ---
initial notes rec patient awake alert with hob elevated. resp easy and unlabored. no sob noted. pt with oximizer at 7 liters . bed to the lowest position and side rails up and locked. call light within reached. voiding using the urinal at bedside. denies pain. call light withn reached.
[2020-03-26] MEDS: CHOLECALCIFEROL (VITAMIN D3) 2,000 UNIT TABLET PO SCH (09:00)
[2020-03-26] MEDS: ASCORBIC ACID 500 MG TABLET PO SCH (09:00)
[2020-03-26] MEDS: THEOPHYLLINE ANHYDROUS 200 MG TAB.SR.12H PO SCH ×2 (09:00→21:00)
[2020-03-26] MEDS: ENOXAPARIN SODIUM 40 MG/0.4 ML SYRINGE SUBCUT SCH ×2 (09:00→20:47)
[2020-03-26] MEDS: ASPIRIN 81 MG TAB.CHEW PO SCH (09:00)
[2020-03-26] MEDS: FAMOTIDINE PF 20 MG/2 ML VIAL IVP SCH ×2 (09:00→20:46)
--- NOTE | 2020-03-26 10:00 | NUR ---
rounds seen by dr silverio and with orders. resting comfortably. no sob noted.
[2020-03-26 12:00] VITALS: BP_SYST 95
--- NOTE | 2020-03-26 12:00 | NUR ---
rounds resting comfortably at this time. call light within reached.
[2020-03-26] MEDS: INSULIN LISPRO SLIDING SCALE 100 UNITS/ML VIAL (humaLOG) SUBCUT PRN ×3 (13:45→21:00)
--- NOTE | 2020-03-26 14:00 | NUR ---
rounds no hypo hyperglycemic reaction noted. bed to the lowest positon and side rails up and locked. call light within reached.
[2020-03-26 16:00] VITALS: BP_SYST 111
--- NOTE | 2020-03-26 16:45 | NUR ---
rounds spoke with dr kent and verified insulin order.
[2020-03-26] MEDS ORDERED: INSULIN NPH 100 UNITS/ML 10 ML VIAL SUBCUT SCH (17:00)
[2020-03-26] MEDS ORDERED: INSULIN NPH 100 UNITS/ML 10 ML VIAL SUBCUT ONE (17:00)
--- NOTE | 2020-03-26 18:00 | NUR ---
HIGH ALERT NOTE: Called Dr VELAZQUEZ back at [phone] identified within the medical roster to verify physician authenticity.
--- NOTE | 2020-03-26 18:45 | NUR ---
closing notes seen by dr kent and verified orders re insulin. no hypo hyperglycemic reaction noted. bed to the lowest position and side rails up and locked. call light within reached. up sitting at bedside.
--- NOTE | 2020-03-26 19:15 | NUR ---
OPENING NOTE: RECEIVED SBAR REPORT FROM DAY SHIFT RN. PATIENT IS IN THE BED, WATCHING TV. RECEIVING 7 L OXYGEN VIA OXYMIZER. NO S/S RESPIRATORY DISTRESS NOTED AT THIS TIME. DENIES PAIN OR SOB. IV SALINE LOCK NOTED ON L FOREARM, FLUSHES WELL. NO SIGN OF INFILTRATION. SAFETY,FALL, AND DROPLET AND CONTACT PRECAUTIONS ARE IN PLACE. CALL LIGHT IS WITH PATIENT. WILL CONTINUE TO MONITOR.
[2020-03-26 20:00] VITALS: BP_SYST 100
--- NOTE | 2020-03-26 21:00 | NUR ---
MED PASS: PATIENT GIVEN SCHEDULED MEDS. RESPIRATION IS EVEN AND UNLABORED ON OXYMIZER. DENIES PAIN AND/OR SOB. BG IS 235. 4 UNITS OF REGULAR INSULIN ADMINISTERED. EDUCATED PATIENT REGARDING S/S HYPOGLYCEMIA. PATIENT VERBALIZED UNDERSTANDING. SAFETY ,FALL, CONTACT AND DROPLET PRECAUTIONS MAINTAINED. CALL LIGHT IS WITH PATIENT. WILL MONITOR PATIENT FOR ANY CHANGES.
--- NOTE | 2020-03-26 23:00 | NUR ---
RN ROUNDS: PATIENT IS IN BED, SLEEPING. RESPIRATION IS EVEN AND UNLABORED. NO S/S RESPIRATORY DISTRESS NOTED. SAFETY AND ISOLATION PRECAUTIONS MAINTAINED. CALL LIGHT IS WITH PATIENT.
[2020-03-27] VITALS (8 sets, daily range): BP systolic 84–105
--- NOTE | 2020-03-27 01:10 | NUR ---
RN ROUNDS: PATIENT ASLEEP. NO S/S RESPIRATORY DISTRESS NOTED. SAFETY,FALL, AND ISOLATIONS PRECAUTIONS MAINTAINED. WILL CONTINUE TO MONITOR.
--- NOTE | 2020-03-27 03:46 | NUR ---
RN ROUNDS: PATIENT IS SLEEPING, STABLE, RESPIRATION IS EVEN AND UNLABORED. WILL CONTINUE TO MONITOR.
--- NOTE | 2020-03-27 06:00 | NUR ---
CLOSING NOTE/ACCU-CHEK: PATIENT IS AWAKE. BG 61 MG/dL. IV INFILTRATED. NEW IV STARTED ON R AC, 22 G. FLUSH WELL. D50% SYRINGE ADMINISTERED TO PATIENT. EDUCATED PATIENT REGARDING S/S HYPO AND HYPERGLYCEMIA. PATIENT VERBALIZED UNDERSTANDING. SAFETY,FALL, AND ISOLATION PRECAUTIONS MAINTAINED. CALL LIGHT WITHIN PATIENT REACH. WILL ENDORSE PATIENT CARE TO DAY SHIFT RN.
[2020-03-27] MEDS ORDERED: INSULIN NPH 100 UNITS/ML 10 ML VIAL SUBCUT SCH ×3 (07:00→17:00)
--- NOTE | 2020-03-27 07:30 | NUR ---
Opening Note received SBAR report from cage shift manager RN, patient resting in bed, respirations even and unlabored on 7L oxymizer, no acute distress noted, educated patient on use of call light and asked to call for assistance, patient verbalized understanding, call light in reach, educated patient on use of bed alarm for patient safety, patient verbalized understanding, patient refusing bed alarm, bed in low and locked position.
[2020-03-27 07:36] LABS: CALCIUM 7.4 mg/dL (8.4-11.0); CREATININE 0.8 mg/dL (0.55-1.30); POTASSIUM 3.6 mmol/L (3.5-5.1)
--- NOTE | 2020-03-27 08:23 | NUR ---
Spoke with physician spoke with Dr. Arellano, she is aware that patients blood sugar this morning was 61, informed her that scene shifter RN administered D50 per orders, informed her of current BP 86/52, HR 59, informed her that patient is sitting up in bed eating breakfast, patient is asymptomatic and denies any dizziness or weakness, patients states "I'm fine", per Dr. Arellano have patient finish eating breakfast and then recheck BP and blood sugar and inform her of results.
[2020-03-27] MEDS: ENOXAPARIN SODIUM 40 MG/0.4 ML SYRINGE SUBCUT SCH ×2 (08:47→21:00)
[2020-03-27] MEDS: ASPIRIN 81 MG TAB.CHEW PO SCH (08:48)
[2020-03-27] MEDS: FAMOTIDINE PF 20 MG/2 ML VIAL IVP SCH ×2 (08:48→21:00)
[2020-03-27] MEDS: ASCORBIC ACID 500 MG TABLET PO SCH (08:48)
[2020-03-27] MEDS: THEOPHYLLINE ANHYDROUS 200 MG TAB.SR.12H PO SCH (08:48)
[2020-03-27] MEDS: CHOLECALCIFEROL (VITAMIN D3) 2,000 UNIT TABLET PO SCH (08:48)
--- NOTE | 2020-03-27 09:28 | NUR ---
HELEN CASH AT [phone] SPOKE WITH RHETT.
[2020-03-27] MEDS ORDERED: NS 250 ML IV ONE (09:35)
--- NOTE | 2020-03-27 09:35 | NUR ---
Spoke with Physician spoke with Dr. Arellano, informed her of repeat blood sugar after patient finished breakfast, blood glucose 191, informed her of repeat BP84/48, HR 61, patient denies any dizziness or confusion, new fluid bolus orders received, verified with read back.
--- NOTE | 2020-03-27 10:19 | NUR ---
Nutrition F/U RD reviewed pt's current EMR record including diet Hx, physician notes, nursing notes, pertinent labs/meds/procedures, care trends, and care activity. Admission Dx: Hypoxia, COVID pneumonia, uncontrolled DM PMH: HTN, DM per physician notes SARS-CoV-2 Ag (Rapid) Positive 03/14 Current Diet Order/Nutrition Support: Cardiac, CCHO standard carb-60 gm, 100 gm protein x5 days Subjective Info: RD bedside visit was deferred d/t isolation precautions and PPE conservation efforts. Pt s/p Remdesivir and Decadron, transferred to Telemetry unit on 03/25, is feeling better and may be ready fo d/c home in a day or two per MD note. Per EMR, pt's continues to have improved appetite, w/ 68% x last [address] visit. Diet has been changed to CCHO Diet on 03/22. Current diet remains adequate and appropriate. Pertinent Medications: Humulin N, SSI, zinc sulfate, VIT D3, VIT C, pepcid, dextrose Pertinent Labs: BG 292 H, POC BG 191 H, TG 167 H (03/16), Chol 207 H (03/16), LDL 140 H (03/16), CRP 0.4 H (03/26, improved), WBC 9.1 (improved) Skin Integrity Comment: Fran scale: 17; No PIs/edema noted per lathe hand Current % PO 68% average x11 meals NEW Estimated Energy Expenditure (kcals/day) 4543-9183 kcal/day (25-30 kcal/kg CBW for maintenance) Estimated Protein Required (g/day) 80-134 gm/day (1.2-2 gm/kg CBW for COVID-19 Dz requiring ICU care) Estimated Fluid Required (l/day) 2-2.3 L/day (30-35 ml/kg CBW for maintenance) Problem/Etiology/Signs/Symptoms Increased protein needs related to metabolic demands as evidenced by estimated protein requirements for COVID-19 ASPEN/SCCM. *ongoing, modified 03/27 Expected Outcomes/Goals - Monitor appetite and PO intakes w/ goal of pt meeting at least 80% of estimated nutritional needs, labs trending WNL, normal GI function, and skin integrity/wt maintenance Dietitian Recommendations * Recommend continuing CCHO Diet * Encourage increase PO intakes Follow Up Mod Risk: F/U in 3-5 days
--- NOTE | 2020-03-27 10:27 | NUR ---
Dietitian Recommendations * Recommend continuing [facility] Diet * Encourage increase PO intakes Please see Nutrition F/U for details. EPRD
--- NOTE | 2020-03-27 10:45 | NUR ---
Physician Rounds Dr. Arellano at bedside examining patient, current BP 94/50, HR 62, no new orders.
[2020-03-27] MEDS: INSULIN LISPRO SLIDING SCALE 100 UNITS/ML VIAL (humaLOG) SUBCUT PRN ×2 (12:00→17:00)
--- NOTE | 2020-03-27 12:40 | NUR ---
RN Rounds patient sitting up in bed eating lunch, tolerating well, no acute distress noted, patient denies any pain or shortess of breath.
--- NOTE | 2020-03-27 14:24 | NUR ---
Claudia assisted patient to claudia with his Komal using hospital Ipad, patient resting in bed.
--- NOTE | 2020-03-27 16:15 | NUR ---
Incentive Spirometer educated patient on purpose and procedure for incentive spirometer use, patient verbalized understanding, patient returned demonstration to 1,000ml, encouraged patient to use x10 every hour while awake, patient verbalized understanding.
[2020-03-27] MEDS: KCL 20 mEq in NS 1000 mL 1,000 ML IV SCH (16:56)
[2020-03-27 16:59] LABS: CALCIUM 8.1 mg/dL (8.4-11.0); CREATININE 0.95 mg/dL (0.55-1.30); POTASSIUM 3.8 mmol/L (3.5-5.1)
--- NOTE | 2020-03-27 19:42 | NUR ---
Closing Note SBAR report given to receiving RN, patient resting in bed, respirations even and unlabored on 7L oxymizer, no acute distress noted, educated patient on use of call light and asked to call for assistance, patient verbalized understanding, call light in reach, educated patient on use of bed alarm for patient safety, patient verbalized understanding, patient refusing bed alarm, bed in low and locked position, care endorsed to shift production associate RN.
--- NOTE | 2020-03-27 19:45 | NUR ---
OPENING NOTE RECEIVED PATIENT AWAKE, ALERT, AND ORIENTED. RESPIRATIONS EVEN AND UNLABORED ON OXIMIZER 7L. PULSE OX 97%. IV SITE PATENT AND INTACT WITH IV FLUIDS RUNNING AND NO SIGNS OF INFILTRATION NOTED. PATIENT DENIES PAIN AT THIS TIME. SAFETY, FALL, AND ISOLATION PRECAUTIONS IN PLACE. BED LOCKED IN LOW POSITION WITH CALL LIGHT IN REACH.
--- NOTE | 2020-03-27 21:15 | NUR ---
MEDICATION PATIENT TOLERATED ALL MEDICATIONS ORDERED. BLOOD SUGAR 98, NO INSULIN COVERAGE NEEDED. WILL CONTINUE TO MONITOR.
--- NOTE | 2020-03-27 23:00 | NUR ---
RN ROUNDS PATIENT SLEEPING COMFORTABLY, RESPIRATIONS REMAIN EVEN AND UNLABORED.
[2020-03-28] VITALS: BP_SYST 103
[2020-03-28] MEDS: THEOPHYLLINE ANHYDROUS 200 MG TAB.SR.12H PO SCH ×3 (00:53→21:00)
[2020-03-28] MEDS: KCL 20 mEq in NS 1000 mL 1,000 ML IV SCH ×3 (02:15→21:49)
--- NOTE | 2020-03-28 06:20 | NUR ---
CLOSING NOTE PATIENT IN BED, AWAKE. BLOOD SUGAR 74, PROVIDED ORANGE JUICE. PATIENT TOLERATED. NO SIGNS OF SOB NOTED ON OXYGEN 7L VIA OXIMIZER. IV SITE PATENT AND INTACT INFUSING IVF WITH NO SIGNS OF INFILTRATION NOTED. PATIENT STABLE. FALL, SAFETY, AND ISOLATION PRECAUTIONS REMAIN IN PLACE. BED LOCKED IN LOW POSITION WITH CALL LIGHT IN REACH.
--- NOTE | 2020-03-28 08:00 | NUR ---
AM ROUNDS: PATIENT ON SEMI WHYTE'S POSITION. ROOM AIR,WITH GOOD SATURATION. IV FLUIDS RUNNING AT RIGHT AC INTACT. CONTACT AIRBORNE AND DROPLET PRECAUTION RENDERED. CALL LIGHT WITH IN REACH. BED LOCKED AT LOWEST POSITION. NO DISTRESS.
[2020-03-28] MEDS: FAMOTIDINE PF 20 MG/2 ML VIAL IVP SCH (08:31)
[2020-03-28] MEDS: ASCORBIC ACID 500 MG TABLET PO SCH (08:32)
[2020-03-28] MEDS: CHOLECALCIFEROL (VITAMIN D3) 2,000 UNIT TABLET PO SCH (08:32)
[2020-03-28] MEDS: ENOXAPARIN SODIUM 40 MG/0.4 ML SYRINGE SUBCUT SCH ×2 (08:32→21:00)
[2020-03-28] MEDS: ASPIRIN 81 MG TAB.CHEW PO SCH (08:32)
[2020-03-28 08:33] VITALS: BP_SYST 107
--- NOTE | 2020-03-28 11:15 | NUR ---
ABG RESULTS: INFORM DR GERARD ,RESULTS OF ABG,WITH ORDERS PUT PATIENT ON O2 1L/NC,O2 SATURATION=97%.PATIENT SITTING ON THE CHAIR BY THE WINDOW. NO DISTRESS.
--- NOTE | 2020-03-28 11:55 | NUR ---
BLOOD SUGAR: BLOOD SUGAR CHECK,WITH INSULIN COVERAGE PER SLIDING SCALE. WITH NO PROBLEM.
[2020-03-28 12:00] VITALS: BP_SYST 90
[2020-03-28] MEDS: INSULIN LISPRO SLIDING SCALE 100 UNITS/ML VIAL (humaLOG) SUBCUT PRN ×2 (12:37→21:49)
--- NOTE | 2020-03-28 14:25 | NUR ---
RN ROUNDS: PATIENT RESTING ON THE BED. NOT ACUTE DISTRESS.
[2020-03-28 16:18] VITALS: BP_SYST 116
--- NOTE | 2020-03-28 17:23 | NUR ---
TRANSFER CARE: ENDORSED TO [facility],PATIENT IN STABLE CONDITION.
--- NOTE | 2020-03-28 17:24 | NUR ---
RECEIVED REPORT FROM OSMANI CARRILLO. CONTINUE TO MONITOR.
--- NOTE | 2020-03-28 18:08 | NUR ---
ACCUCHECK DONE, NO INSULIN COVERAGE NEEDED PER SLIDING SCALE. DINNER TRAY GIVEN AT BEDSIDE. PT SITTING UP IN BED, EATING DINNER, TOLERATING WELL. CONTINUE TO MONITOR.
--- NOTE | 2020-03-28 18:53 | NUR ---
CLOSING NOTES PT AWAKE AND ALERT, SITTING UP IN BED EATING DINNER. NONLABORED BREATHING NOTED ON ROOM AIR. PT DENIES PAIN AND SOB AT THIS TIME. NO ACUTE DISTRESS NOTED. IV LINE INTACT AND PATENT, NO SIGNS OF INFILTRATION NOTED, FLUIDS RUNNING ORDERED PER MD. NO ACUTE DISTRESS NOTED. ALL NEEDS MET. CALL LIGHT IN REACH. FALL. ASPIRATION, AND ISOLATION PRECAUTIONS IN PLACE. WILL ENDORSE TO NOC NURSE.
--- NOTE | 2020-03-28 19:13 | NUR ---
OPENING NOTES: PATIENT AWAKE, ALERT AND ORIENTED X 4, SITTING UP IN BED WATCHING TV. NONLABORED AND EVEN BREATHING NOTED ON ROOM AIR. PATIENT DENIES PAIN AND SOB AT THIS TIME. NO ACUTE DISTRESS NOTED. IV LINE INTACT AND PATENT, NO SIGNS OF INFILTRATION NOTED, FLUIDS RUNNING ORDERED.CALL LIGHT IN REACH. FALL, ASPIRATION, AND ISOLATION PRECAUTIONS IN PLACE. WILL CONTINUE TO MONITOR.
[2020-03-28 20:00] VITALS: BP_SYST 107
--- NOTE | 2020-03-28 21:00 | NUR ---
MEDICATION PASS/ ACCUCHEK: PATIENT GIVEN SCHEDULED MEDICATION. BG IS 186 MG/dL. 2 UNITS OF REGULAR INSULIN GIVEN PER SLIDING SCALE. EXPLAINED S/S OF HYPO AND HYPERGLYCEMIA TO THE PATIENT. PATIENT VERBALIZED UNDERSTANDING. SAFETY,FALL, ASPIRATION, AND ISOLATION PRECAUTIONS ARE IN PLACE. CALL LIGHT IS WITH PATIENT. WILL CONTINUE TO MONITOR PATIENT.
--- NOTE | 2020-03-28 22:20 | NUR ---
ASSUMPTION OF CARE SBAR REPORT RECEIVED FROM NISREEN VENTURA AT BEDSIDE. AT INITIAL ASSESSMENT, PATIENT IS RESTING IN BED, STABLE, NO SIGNS OF RESPIRATORY DISTRESS. PATIENT VERBALIZES NO PAIN. PLAN OF CARE FOR THE EVENING IS COMMUNICATED WITH THE PATIENT. PATIENT DEMONSTRATES CORRECT USAGE OF CALL LIGHT AT THIS TIME. BED IS LOCKED, ALARMED, AND AT THE LOWEST LEVEL. FALL SAFETY EDUCATION PROVIDED. FALL, SAFETY, ASPIRATION, ISOLATION, AND RESPIRATORY PRECAUTIONS WILL BE TAKEN THROUGHOUT THE SHIFT.
[2020-03-29] VITALS: BP_SYST 108; BP_SYST 141
--- NOTE | 2020-03-29 00:20 | NUR ---
NOTE PATIENT IS RESTING IN BED, STABLE, NO SIGNS OF RESPIRATORY DISTRESS. CALL LIGHT IS WITHIN REACH. BED IS LOCKED, ALARMED, AND AT THE LOWEST LEVEL.
--- NOTE | 2020-03-29 02:20 | NUR ---
OXYGEN TITRATION NOTE PATIENT IS TITRATED DOWN TO ROOM AIR, HE IS TOLERATING WELL, OXYGEN SATURATION AROUND 94% AT THIS TIME. WILL CONTINUE TO MONITOR CLOSELY. HE IS STABLE, NO SIGNS OF RESPIRATORY DISTRESS. CALL LIGHT IS WITHIN REACH. BED IS LOCKED, ALARMED, AND AT THE LOWEST LEVEL.
--- NOTE | 2020-03-29 04:20 | NUR ---
NOTE PATIENT IS SLEEPING, STABLE, NO SIGNS OF RESPIRATORY DISTRESS. CALL LIGHT IS WITHIN REACH. BED IS LOCKED, ALARMED, AND AT THE LOWEST LEVEL.
--- NOTE | 2020-03-29 06:20 | NUR ---
CLOSING NOTE OXYGEN TITRATED DOWN TO ROOM AIR; PATIENT IS STILL TOLERATING WELL, OXYGEN SATURATION AT THIS TIME AROUND 94%. BLOOD SUGAR CHECK THIS AM REQUIRED NO INSULIN COVERAGE PER SSI ORDERED BY MD. PATIENT SLEPT WELL THROUGHOUT THE SHIFT, NO SHORTNESS OF BREATH NOTED. AT THIS TIME, PATIENT IS RESTING IN BED, STABLE, NO SIGNS OF RESPIRATORY DISTRESS. CALL LIGHT IS WITHIN REACH. BED IS LOCKED, ALARMED, AND AT THE LOWEST LEVEL. FALL, SAFETY, AND RESPIRATORY PRECAUTIONS HAVE BEEN TAKEN THROUGHOUT THE SHIFT. WILL CONTINUE TO MONITOR UNTIL SHIFT REPORT IS GIVEN AT BEDSIDE TO AM NURSE.
--- NOTE | 2020-03-29 07:30 | NUR ---
OPENING NOTES PT RESTING IN BED, CHEST RISE AND FALL NOTED. NONLABORED BREATHING NOTED ON ROOM AIR. NO ACUTE DISTRESS NOTED. ALL NEEDS MET. CALL LIGHT IN REACH. FALL AND ASPIRATION PRECAUTIONS IN PLACE. CONTINUE TO MONITOR.
[2020-03-29 07:56] LABS: CALCIUM 7.9 mg/dL (8.4-11.0); CREATININE 0.73 mg/dL (0.55-1.30); POTASSIUM 4.2 mmol/L (3.5-5.1)
[2020-03-29 08:00] VITALS: BP_SYST 99
[2020-03-29] MEDS: ASPIRIN 81 MG TAB.CHEW PO SCH (08:49)
[2020-03-29] MEDS: CHOLECALCIFEROL (VITAMIN D3) 2,000 UNIT TABLET PO SCH (08:49)
[2020-03-29] MEDS: ENOXAPARIN SODIUM 40 MG/0.4 ML SYRINGE SUBCUT SCH (08:49)
[2020-03-29] MEDS: THEOPHYLLINE ANHYDROUS 200 MG TAB.SR.12H PO SCH (08:49)
[2020-03-29] MEDS: ASCORBIC ACID 500 MG TABLET PO SCH (08:49)
--- NOTE | 2020-03-29 08:49 | NUR ---
ROUTINE MEDS ADMINISTERED ORDERED PER MD, EDUCATION GIVEN, TOLERATED WELL. CONTINUE TO MONITOR.
[2020-03-29] MEDS ORDERED: FAMOTIDINE 20 MG TABLET PO SCH (09:00)
--- NOTE | 2020-03-29 10:45 | NUR ---
ROUNDS PT RESTING IN BED, CHEST RISE AND FALL NOTED. EASILY AWAKEN. NO ACUTE DISTRESS NOTED. ALL NEEDS MET. CALL LIGHT IN REACH. CONTINUE TO MONITOR.
--- NOTE | 2020-03-29 12:02 | NUR ---
ACCUCHECK DONE, NO INSULIN COVERAGE NEEDED PER SLIDING SCALE. NO ACUTE DISTRESS NOTED. ALL NEEDS MET. CALL LIGHT IN REACH. CONTINUE TO MONITOR.
[2020-03-29 12:04] VITALS: BP_SYST 99
--- NOTE | 2020-03-29 13:35 | NUR ---
SPOKE TO DR. VELAZQUEZ AT NURSE'S STATION, STATED TO AMBULATE PATIENT AND MONITOR O2, RECEIVED ORDERS, VERIFIED, AND CARRIED OUT. PT O2 AT 89% WHEN AMBULATING AND STATES "A LITTLE OUT OF BREATH", AND O2 WILL INCREASE TO 94% WHEN AT REST. WILL RELAY INFORMATION TO MD.
--- NOTE | 2020-03-29 13:51 | NUR ---
DC Planning: Home O2 and HH /PT: requested and faxed the referral package and the dcp order to TONIO Watkins at [facility] fax # [phone] tel # [phone]. Addendum: 03/29/20 at 1526 by Katheryn Santiago RN >> Per Claudia Asif: to utilize [facility] for home oxygen need. fax the package to [phone] as well. >> [employer]: faxed the referral package and O2 order attn to Jose fax # [phone] tel # [phone]. [employer] respiratory order form once signed by dr. Arellano , needs faxing to [facility]. -- NISREEN Rodriguez made aware. Addendum: 03/29/20 at 1725 by Katheryn Santiago RN >> Called back from [facility]/per Fei : unable to fulfill the request DT has shortage of the high demand on home concentrator. >> I met with dr. Tovar at nursing unit, stated " he will cancel the home oxygen order, the pt does not need it" . -- dr. Arellano made aware. She cancelled the HH/PT as well.
--- NOTE | 2020-03-29 14:05 | NUR ---
AMBULATE WITH O2 SPOKE TO DR. VELAZQUEZ AT NURSE'S STATION, RECEIVED ORDERS TO AMBULATE PT WITH O2 UNTIL O2 AT 92%, VERIFIED, AND CARRIED OUT. WHEN AMBULATING, PT'S O2 AT 92% WITH 2LPM AND >92% AT 3LPM.
--- NOTE | 2020-03-29 15:36 | NUR ---
SPOKE TO P[employer]CEL[employer] ENAMELING SUPERVISOR BRYAN, STATED MD NEEDS TO SIGN PAPERS FOR HOME O2; SPOKE TO DR. VELAZQUEZ OVER THE PHONE, MD AWARE, RECEIVED ORDERS TO AMBULATE PT AND MONITOR O2, VERIFIED, AND WILL CARRY OUT.
[2020-03-29 15:59] VITALS: BP_SYST 107
--- NOTE | 2020-03-29 16:51 | NUR ---
SEEN BY DR. PADILLA AT BEDSIDE. AWARE OF PT O2 SAT AT 89% WHEN AMBULATING, DR. PADILLA STATED OK TO DC. WILL INFORM DR. VELAZQUEZ.
--- NOTE | 2020-03-29 16:55 | NUR ---
DR. VELAZQUEZ AWARE OF PT CLEARED FOR DC BY DR. PADILLA. OK TO DC, RECEIVED ORDERS, VERIFIED, AND CARRIED OUT.
[2020-03-29 17:00] VITALS: BP_SYST 107
[2020-03-29] MEDS ORDERED: GLUXR500 PO (17:10)
[2020-03-29] MEDS ORDERED: APIX2.5T PO (17:11)
[2020-03-29] MEDS ORDERED: ZINC220T4 PO (17:12)
[2020-03-29] MEDS ORDERED: ASCO500T20 PO (17:13)
[2020-03-29] MEDS ORDERED: VITD2000 PO (17:14)
[2020-03-29] MEDS ORDERED: ALBMDI INH (17:16)
--- NOTE | 2020-03-29 19:44 | NUR ---
D/C Patient Patient given medication reconciliation form and D/C instructions. Exit Care provided. Patient verbalized understanding. MD discussed with patient the results and treatment provided. Ambulatory with steady gait for discharge to home. Patient in stable condition, ID band removed. IV catheter removed, intact and dressing applied, no active bleeding. Written prescriptions given. Patient educated on pain management. All belongings sent with patient.
--- NOTE | 2020-03-30 15:04 | NUR ---
Apparel Stock Checker: follow up TOBACCO CHECKOUT CLERK spoke to Rn. Rodriguez and inquired about Dr. Arellano and if she signed the Respiratory Order. Rn. Rodriguez stated Dr. Garcia stated patient did not need home Oxygen.
--- NOTE | 2020-04-02 13:21 | NUR ---
Discharge Follow Up Phone Call Phoned patient, , and spoke with his son, Nadir. They filled patient's prescriptions and patient is taking them as directed. They have not phoned patient's PCP yet for a follow up appointment. Patient was sob last night, better today. He is using his inhaler as directed. Advised them to phone patient's PCP for advice and FU appointment. Nadir agreed. Also reminded them that patient can return to the hospital ED if sob becomes concerning. Patient is isolating as recommended.
== END 2020-03-29 19:45 | disposition home or self-care (01) | DRG 720 ==
LOC: SED 07:30 → STU 10:17 → SIC 19:52 → STU 03-25 21:19
PROVIDERS: ADMIT Internal Medicine; ATTEND Internal Medicine
PROC: XW13325 Transfusion of Convalescent Plasma (Nonautologous) into Peripheral Vein, Percutaneous Approach, New Technology Group 5 (ICD-10-PCS; principal; 2020-03-15)
PROC: XW033E5 Introduction of Remdesivir Anti-infective into Peripheral Vein, Percutaneous Approach, New Technology Group 5 (ICD-10-PCS; 2020-03-19)
PROC: 5A0935A Assistance with Respiratory Ventilation, Less than 24 Consecutive Hours, High Flow/Velocity Cannula (ICD-10-PCS; 2020-03-21)
PROC: 5A0935A Assistance with Respiratory Ventilation, Less than 24 Consecutive Hours, High Flow/Velocity Cannula (ICD-10-PCS; 2020-03-24)
DX: A41.9 Sepsis, unspecified organism (principal); U07.1 COVID-19; J12.89 Other viral pneumonia; E11.65 Type 2 diabetes mellitus with hyperglycemia; I10 Essential (primary) hypertension; E43 Unspecified severe protein-calorie malnutrition; D72.810 Lymphocytopenia; G72.81 Critical illness myopathy; I25.10 Atherosclerotic heart disease of native coronary artery without angina pectoris; J80 Acute respiratory distress syndrome; J81.1 Chronic pulmonary edema; E78.00 Pure hypercholesterolemia, unspecified; I24.8 Other forms of acute ischemic heart disease; E88.09 Other disorders of plasma-protein metabolism, not elsewhere classified; E83.51 Hypocalcemia; Z79.4 Long term (current) use of insulin; Z87.891 Personal history of nicotine dependence; Z90.49 Acquired absence of other specified parts of digestive tract; Z68.24 Body mass index [BMI] 24.0-24.9, adult
CPT/HCPCS: 36415; 36430; 36600; 71045; 80048; 80053; 80061; 80074; 80076; 81000-TC; 82550-TC; 82728; 82803-TC; 82962; 83036; 83605; 83615-TC; 83735-TC; 83880; 84439; 84443-TC; 84484; 85025; 85379; 85384-TC; 85610-TC; 85651-TC; 85730-TC; 86140; 86886; 86900; 86901; 87040-TC; 87081; 87086; 93005; 94760; 96365; 97112-GP; 97163; J0456; J0696; J1100; J1650; J1815; J1940; J1956; J2270; J3480; J3490; J7030; J7040; J7050; J7060; P9017

== ENCOUNTER 2021-02-09 09:55 | Emergency (ER) | payer MEDICAID, SELFPAY ==
[~2021-02-09] VITALS: Ht 165.1 cm; Wt 68.0 kg
[~2021-02-09 09:55] MED LIST changes: +ALBMDI INH; +APIX2.5T PO; +ASCO500T20 PO; +GLUXR500 PO; -IBUP-2604 PO; -TYC3 PO; +VITD2000 PO; +ZINC220T4 PO
[2021-02-09 10:08] VITALS: BP_SYST 160
[2021-02-09] MEDS ORDERED: MORPHINE 4 MG INJ. 4 MG/ML VIAL IVP ONE (11:30)
[2021-02-09] MEDS ORDERED: ONDANSETRON HCL 4 MG/2 ML VIAL IVP ONE (11:30)
[2021-02-09 11:58] LABS: BASOPHILS % (AUTO) 0.1 % (0.0-2.0); HEMOGLOBIN 14.6 g/dL (14.0-18.0); LYMPHOCYTES # (AUTO) 0.3 K/uL (1.0-5.5); LYMPHOCYTES % (AUTO) 2.4 % (20.5-51.5); MEAN CORPUSCULAR HEMOGLOBIN 29 pg (27-31); MEAN CORPUSCULAR HGB CONC 34 % (32-36); MEAN CORPUSCULAR VOLUME 85 fL (79.0-98.0); MONOCYTES # (AUTO) 0.2 K/uL (0.0-1.0); MONOCYTES % (AUTO) 2.1 % (1.7-9.3); NEUTROPHILS # (AUTO) 10.8 K/uL (1.8-7.7); NEUTROPHILS % (AUTO) 95.4 % (40.0-70.0); PLATELET COUNT (AUTO) 225 K/uL (130-430); RED BLOOD CELL COUNT(AUTO) 5.08 MIL/uL (4.2-6.2); RED CELL DISTRIBUTION WIDTH 13.7 % (9.0-15.0); WHITE BLOOD COUNT (AUTO) 11.3 K/uL (4.8-10.8)
[2021-02-09 12:05] LABS: BILIRUBIN,URINE NEGATIVE (NEGATIVE); BLOOD, URINE 3+ (NEGATIVE); CLARITY/URINE CLEAR (CLEAR); COLOR,URINE YELLOW (YELLOW); GLUCOSE,URINE 3+ (NEGATIVE); KETONES,URINE 2+ (NEGATIVE); LEUKOCYTE ESTERASE ,URINE NEGATIVE (NEGATIVE); NITRITE, URINE NEGATIVE (NEGATIVE); PH,URINE 5.5 (5.0-8.0); PROTEIN URINE NEGATIVE (NEGATIVE); UROBILINOGEN,URINE 0.2 (0.2-1.0)
[2021-02-09 12:08] LABS: CREATININE 0.9 mg/dL (0.55-1.30); POTASSIUM 3.7 mmol/L (3.5-5.1)
[2021-02-09 12:13] LABS: ALBUMIN 3.3 g/dL (3.4-4.8); TOTAL BILIRUBIN 0.3 mg/dL (0.0-1.0)
[2021-02-09 12:35] LABS: BACTERIA,URINE MODERATE /HPF (None Seen); MUCUS,URINE 1+ /LPF (None Seen); RBC,URINE 20-50 /HPF (0-3)
[2021-02-09] MEDS ORDERED: NACL 0.9% 1,000 ML IV ONE ×2 (13:00)
[2021-02-09] MEDS ORDERED: INSULIN NPH/REGULAR 70-30, 100 UNITS/ML, 10 ML VIAL SUBCUT ONE (14:30)
[2021-02-09 16:05] VITALS: BP_SYST 106
== END 2021-02-09 16:06 | disposition home or self-care (01) ==
LOC: SED 09:55
DX: E11.65 Type 2 diabetes mellitus with hyperglycemia (principal); R10.32 Left lower quadrant pain; R31.9 Hematuria, unspecified; I10 Essential (primary) hypertension; Z79.899 Other long term (current) drug therapy; Z79.84 Long term (current) use of oral hypoglycemic drugs; Z91.14 Patient's other noncompliance with medication regimen
CPT/HCPCS: 36415; 74177; 76376; 80053; 81000; 82962; 83690; 85025; 87086; 96361; 96372; 96374; 96375; 99285; J2270; J2405; J7030; Q9967; J1815

== ENCOUNTER 2024-02-14 06:15 | Day surgery (SDC) | payer MEDICAID ==
[~2024-02-14] VITALS: Ht 167.6 cm; Wt 68.0 kg
[2024-02-14] MEDS ORDERED: MIDAZOLAM HCL 5 MG/5 ML VIAL ONE (07:35)
[2024-02-14] MEDS ORDERED: SIMETHICONE 40 MG/0.6 ML ML ONE (07:35)
[2024-02-14] MEDS ORDERED: fentaNYL CITRATE/PF 100 MCG/2 ML AMP ONE (07:35)
[2024-02-14 09:39] VITALS: O2SAT 97
[2024-02-14 13:15] VITALS: BP_SYST 111; PULSE 59; RESP 18
== END 2024-02-14 09:10 | disposition home or self-care (01) ==
LOC: SGI 06:15 → SMU 06:23 → SGI 09:10
PROVIDERS: ATTEND Internal Medicine
DX: Z12.11 Encounter for screening for malignant neoplasm of colon (principal); R13.10 Dysphagia, unspecified; K63.5 Polyp of colon; K29.50 Unspecified chronic gastritis without bleeding; B96.81 Helicobacter pylori [H. pylori] as the cause of diseases classified elsewhere; K20.90 Esophagitis, unspecified without bleeding; K22.10 Ulcer of esophagus without bleeding; K64.8 Other hemorrhoids; I10 Essential (primary) hypertension; E11.9 Type 2 diabetes mellitus without complications; E78.5 Hyperlipidemia, unspecified; Z90.49 Acquired absence of other specified parts of digestive tract; Z79.84 Long term (current) use of oral hypoglycemic drugs; Z79.899 Other long term (current) drug therapy; Z87.891 Personal history of nicotine dependence
CPT/HCPCS: 45385; 43239; 87081; 36415; 82948; 88305; 88312; 88313; 99153; 99152; G0378; J2250; J3010